=== PATIENT | male | born 1955 | race Caucasian/White ===

== ENCOUNTER → 2020-10-15 14:19 | Outpatient (BNVA) | payer OTHER, SELFPAY | PROVIDERS: Visit Provider Internal Medicine | DX: E05.00 Thyrotoxicosis with diffuse goiter without thyrotoxic crisis or storm (principal); E89.0 Postprocedural hypothyroidism; R00.1 Bradycardia, unspecified | CPT/HCPCS: 99204 ==

== ENCOUNTER 2020-10-15 15:16 | Outpatient (CLI) | payer OTHER, SELFPAY ==
[2020-10-15 16:49] LABS: Thyroid Stimulating Hormone 0.29 uIU/mL (0.27-4.20)
[2020-10-17 12:04] LABS: T3 Total 98 ng/dL (76-181)
[2020-10-21 22:47] LABS: TSH Receptor Binding Antibody <1.00 IU/L (< OR = 2.00)
== END 2020-10-15 15:17 | disposition home or self-care (01) ==
PROVIDERS: Visit Provider Internal Medicine
DX: E05.00 Thyrotoxicosis with diffuse goiter without thyrotoxic crisis or storm (principal)
CPT/HCPCS: 36415; 83516; 84439; 84443; 84480

== ENCOUNTER → 2020-11-11 14:42 | Outpatient (BNVA) | payer OTHER, SELFPAY | PROVIDERS: Visit Provider Internal Medicine | DX: E05.00 Thyrotoxicosis with diffuse goiter without thyrotoxic crisis or storm (principal); E29.1 Testicular hypofunction; E89.0 Postprocedural hypothyroidism; M81.0 Age-related osteoporosis without current pathological fracture; R00.1 Bradycardia, unspecified; Z85.46 Personal history of malignant neoplasm of prostate | CPT/HCPCS: 99215 ==

== ENCOUNTER 2020-11-11 15:09 | Outpatient (CLI) | payer OTHER, SELFPAY ==
[2020-11-11 16:59] LABS: Anion Gap 13.2 (5-19); Blood Urea Nitrogen 22 mg/dL (8-23); Calcium 8.9 mg/dL (8.5-10.5); Carbon Dioxide 23 mmol/L (22-29); Chloride 108 mmol/L (98-107); Free T4 Free Thyroxine 1.65 ng/dL (0.82-1.77); Glomerular Filtration Rate 84.2 mL/min (90-130); Glucose 80 mg/dL (65-115); Osmolality Calculated 292 mOsm/kg (285-295); Potassium 4.2 mmol/L (3.5-5.1); Sodium 140 mmol/L (136-145); Thyroid Stimulating Hormone 0.03 uIU/mL (0.27-4.20)
[2020-11-11 17:01] LABS: Calcium 9.6 mg/dL (8.5-10.5)
== END 2020-11-11 15:10 | disposition home or self-care (01) ==
PROVIDERS: Visit Provider Internal Medicine
DX: M81.0 Age-related osteoporosis without current pathological fracture (principal); E89.0 Postprocedural hypothyroidism
CPT/HCPCS: 36415; 80048; 82310; 83970; 84439; 84443

== ENCOUNTER 2020-12-17 10:50 | Outpatient (CLI) | payer OTHER, SELFPAY ==
[2020-12-17 12:25] LABS: Free T4 Free Thyroxine 1.44 ng/dL (0.82-1.77); Thyroid Stimulating Hormone 0.04 uIU/mL (0.27-4.20)
== END 2020-12-17 10:51 | disposition home or self-care (01) ==
LOC: LAB 10:57
PROVIDERS: PCP Internal Medicine; Visit Provider Internal Medicine
DX: E89.0 Postprocedural hypothyroidism (principal)
CPT/HCPCS: 84439; 84443

== ENCOUNTER → 2020-12-26 11:00 | Day surgery (SDC) | payer OTHER, SELFPAY ==
[2020-12-26 11:16] VITALS: BP 110/62; PULSE 55; RESP 16; TEMP 36.2; O2SAT 99
[2020-12-26] MEDS: denosumab 60 mg SDV SUBCUT (11:37)
== END ==
PROVIDERS: PCP Internal Medicine; Visit Provider Internal Medicine
DX: E89.0 Postprocedural hypothyroidism (principal)
CPT/HCPCS: 96372; J0897

== ENCOUNTER → 2021-01-09 11:43 | Outpatient (BNVA) | payer OTHER, SELFPAY | PROVIDERS: PCP Family Medicine; Visit Provider Urology | DX: Z85.46 Personal history of malignant neoplasm of prostate (principal); R31.29 Other microscopic hematuria; Z96.0 Presence of urogenital implants | CPT/HCPCS: 81003; 87086; 88112 ==

== ENCOUNTER 2021-02-05 09:02 | Outpatient (CLI) | payer OTHER, SELFPAY ==
--- NOTE | 2021-02-05 09:00 | CT_ITS ---
WS: [id number] CT ABDOMEN AND PELVIS WITH AND WITHOUT CONTRAST HISTORY: R31.29 - Other microscopic hematuria TECHNIQUE: Unenhanced 5 mm axial imaging first performed through the abdomen. Post contrast imaging t hrough the abdomen and pelvis. Oral contrast has not been provided. Sagittal and coronal reformats a re submitted. All CT scans at [facility] use at least one of these dose optimization tech niques: automated exposure control; mA and/or kV adjustment per patient size (includes targeted exams where dose is matched to clinical indication); or iterative reconstruction. CONTRAST: Omnipaque 300; 95 mL IV. DLP: 2197.23 mGy.cm COMPARISON: None available. Noncalcified 3 mm nodules heart is normal size. No hiatal hernia. At the RIGHT lung base. Normal size liver with several low-attenuation masses. Majority of these are cysts with the largest measuring up to 2.2 cm. Some of these low-attenuation nodules are too small to characterize. Normal portal vein. Negative gallbladder, spleen and pancreas. Normal adrenal glands. Mild atherosclerosis aorta. RIGHT kidney: 9.7 cm in length. Mild perinephric stranding. No calcifications. Cortical cyst upper po le measures 5 mm at its maximum diameter. No enhancing masses or obstruction. No uroepithelial fillin g defects. LEFT kidney: 9.0 cm in length. Very mild perinephric stranding with no obstruction or calcification. No cystic or solid mass. No uroepithelial filling defects. Normally distended urinary bladder. No bladder wall thickening or mass. Penile prosthesis with reserv oir is noted within the pelvis. No adenopathy or ascites. Visualized GI tract is normal. The appendix is normal. No destructive bone lesions. CT/CT abdomen pelvis wo/w [id number] IMPRESSION: 1. No renal mass, obstruction or calcification. 2. No lesions in the urinary bladder. 3. Hepatic cysts. Additional subcentimeter nodules are too small to characteri ze within the liver.
[2021-02-05 09:55] LABS: Blood Urea Nitrogen 25 mg/dL (8-23); Glomerular Filtration Rate 84.2 mL/min (90-130)
[2021-02-05] MEDS: iohexol 300 mg/mL 100 mL Btl IV (10:12)
== END 2021-02-05 09:03 | disposition home or self-care (01) ==
LOC: RAD 09:04
PROVIDERS: PCP Family Medicine; Visit Provider Urology
DX: R31.29 Other microscopic hematuria (principal); K76.89 Other specified diseases of liver
CPT/HCPCS: 36415; 74178; 81003; 82565; 84520

== ENCOUNTER 2021-02-15 12:54 | Emergency (ER) | payer OTHER, SELFPAY ==
[2021-02-15 12:56] VITALS: BP 115/77; PULSE 97; RESP 18; TEMP 36.6; O2SAT 97; BMI 26.6
--- NOTE | 2021-02-15 13:06 | ED_ITS ---
HPI - Wound/Laceration General: Chief Complaint: Wound/Laceration Stated Complaint: left hand finger injury Time Seen by Provider: 02/15/21 13:05 History of Present Illness: HPI narrative: Patient is a 65-year-old male comes to the ED with laceration to finger. Injury occurred just prior to arrival. Patient says he was dissecting a turtle and accidentally cut his left fifth digit. Laceration is on the dorsal aspect fifth digit. Patient is currently on Brilinta and takes a daily aspirin. Patient is unsure of last tetanus shot and would like an updated dose today. Associated symptoms: Denies chills, fever(s), nausea or vomiting Review of Systems Const: Denies: fever(s), chills or fatigue Eyes: Denies: change in vision or eye discomfort ENMT: Denies: throat pain, odynophagia, nasal discharge or nasal congestion Card: Denies: chest pain, palpitations, edema, swelling of feet/ankles, dyspnea on exertion or orthopnea Resp: Denies: dyspnea, productive cough or non-productive cough GI: Denies: abdominal pain, nausea, vomiting, diarrhea, constipation or hematochezia : Denies: flank pain, difficulty urinating, dysuria or hematuria Musc: Denies: neck pain, back pain or extremity swelling Skin/Breast: Reports: new lesions (laceration to 5th digit of left hand); Denies: rash Neuro: Denies: headache(s), numbness in extremities or weakness in extremities PFS ED PFSH: Medical History Anxiety Bladder incontinence Bradycardia Coronary artery disease Depression Hypogonadism Hypothyroidism Impotence Left rotator cuff tear arthropathy Microhematuria Neuropathy Obstructive sleep apnea Osteoarthritis Osteoporosis Right inguinal hernia Tendinitis Surgical History H/O prostatectomy Family History Mother Brain aneurysm Diabetes CAD (coronary artery disease) Father Hodgkins disease Social History Smoking and tobacco status: current every day smoker Second hand smoke exposure: Yes Alcohol intake: current Alcohol intake frequency: holidays/special occasions only Marital status: Current occupational status: disabled Physical Exam Const: COMMON NORMALS: no acute distress, patient oriented x3, healthy appearing and alert GENERAL APPEARANCE: cooperative and comfortable HENMT: COMMON NORMALS: normocephalic HEAD & SCALP: normocephalic MOUTH: Normal oral and palatal mucosa present THROAT: posterior oropharynx normal and uvula midline Neck/C-Spine: COMMON NORMALS: supple GENERAL: Yes normal visual inspection Resp: COMMON NORMALS: normal respiratory effort, No retractions, No use of accessory muscles and clear to auscultation bilaterally AUSCULTATION: clear to auscultation bilaterally Cardio: COMMON NORMALS: regular rate, regular rhythm, S1 normal heart sound present, S2 normal heart sound present, No gallops present (Cardio), No clicks present (Cardio), No murmurs present (Cardio) and Peripheral pulses 2+ throughout RATE: regular rate RHYTHM: regular rhythm HEART SOUNDS: S1 normal heart sound present and S2 normal heart sound present PERIPHERAL PULSES: Peripheral pulses 2+ throughout GI: COMMON NORMALS: Normal to inspection, nondistended, normoactive bowel sounds present, Soft to palpation, non-tender and no masses PALPATION: Yes Soft to palpation : COMMON NORMALS: Yes no CVA tenderness BLADDER/KIDNEY EXAM: Yes no CVA tenderness Back/Pelvis: COMMON NORMALS: no CVA tenderness Extremity: NARRATIVE EXTREMITY EXAM: Left hand?fifth digit?linear superficial laceration approximately 1.5 cm in length. Patient had finger wrapped in bandage and I removed the bandage and there is no active bleeding at that time. Once patient started moving finger bleeding started again. Patient has full range of motion and fifth digit. Neuro: COMMON NORMALS: patient oriented x3 and moves all extremities SENSORIUM/ORIENTATION: Yes alert Skin: TRAUMA: laceration (1.5 cm laceration on dorsal aspect of fifth digit left hand.) linear, actively bleeding (Minimal) and superficial; not contaminated Procedures Laceration Laceration 1: Site: hand (Dorsal aspect of fifth digit) Side (If applicable): left Size (cm): 1.5 Description: linear Depth: simple, single layer Local Anesthetic: lidocaine 1% Amount of anesthesia used (mL): 10 Pre-repair: irrigated extensively (With normal saline and an iodine wash.) Skin layer closed with: nylon Size (cm): 4-0 Number of sutures: 7 Technique: simple, interrupted Course Vital Signs: Vital signs: Vital Signs Temperature 97.9 F 02/15/21 12:56 Pulse Rate 97 02/15/21 12:56 Respiratory Rate 18 02/15/21 12:56 Blood Pressure 115/77 02/15/21 12:56 Pulse Oximetry 97 02/15/21 12:56 MDM - Wound/Laceration MDM Narrative: Medical decision making narrative: Patient is a 65-year-old male comes to the ED with a laceration to fifth digit. Patient was dissecting internal and accidentally cut his fifth digit. Patient has a linear and superficial 1.5 cm laceration over the dorsal aspect of fifth digit. There is no nail involvement. Patient has full range of motion in finger, so no suspicion of any tendon injury. Left hand x-ray shows no acute findings or foreign body seen. Patient was given updated tetanus and laceration was irrigated extensively with normal saline and iodine wash. Lidocaine 1% was used as a local and 7 sutures were placed to close wound. Patient was discharged home on Augmentin as prophylactic treatment. He was told to follow-up with his PCP in 7 to 10 days to have laceration site reevaluated and the sutures removed. Return to ED precautions given. Patient understood and agree with plan. Imaging Data^: Xray Ortho: Attestation: I personally reviewed and interpreted this imaging study as follows: Radiologist's impression: [address] [id number] ReportSigned Patient: Jt Cintron #: [id number]: 4Acct#:[id number]/Sex: 65 / MADM Date: 02/15/21[facility]ending Dr: Ordering Provider/Ordering MD: Beck Arthur Date of Service: 02/15/21 Procedure(s): XR hand LT min 3V* [id number] Accession Number(s): [id number] Report Number: [id number] PROCEDURE INFORMATION: Exam: XR Left Hand Exam date and time: 02/15/2021 1:07 PM Age: 65 years old Clinical indication: Injury or trauma; Other: Laceration; Work related; Left; Little finger; Additional info: Laceration to 5th digit TECHNIQUE: Imaging protocol: XR Left hand. Views: 3 or more views. COMPARISON: No relevant prior studies available. FINDINGS: Bones/joints: Negative for acute bony abnormalities Soft tissues: Soft tissue edema is seen in the lateral aspect of the 5th digit near the distal interphalangeal articulation. There are no foreign bodies seen in the soft tissues. XR/XR hand LT min 3V* [id number] IMPRESSION: 1. No acute findings. 2. Soft tissue edema 5th digit 3. Negative for soft tissue foreign body Dictated By:Darwin Chau By:Darwin Chau Date/Time:02/15/211407DD/ 06 Discharge Plan Discharge Patient Disposition: Home Clinical Impression: Laceration of finger Qualifiers: Encounter type: initial encounter Finger: little finger Damage to nail status: without damage Foreign body presence: without foreign body Laterality: left Qualified Code(s): S61.217A - Laceration without foreign body of left little finger without damage to nail, initial encounter Condition: Stable Prescriptions: New Augmentin 500-125 mg tablet 1 tab PO BID 7 Days Qty: 14 RF: 0 No Action duloxetine 60 mg capsule,delayed release(DR/EC) 60 mg PO DAILY RF: 0 atorvastatin 40 mg tablet 40 mg PO DAILY RF: 0 gabapentin 400 mg capsule 400 mg PO BID RF: 0 aspirin 81 mg tablet,delayed release (DR/EC) 81 mg PO DAILY RF: 0 Brilinta 90 mg tablet 90 mg PO DAILY RF: 0 topiramate 50 mg tablet 50 mg PO BID RF: 0 cholecalciferol (vitamin D3) 100 mcg (4,000 unit) capsule 100 mcg PO BID RF: 0 trazodone 50 mg tablet 50 mg PO DAILY RF: 0 hydrocodone-acetaminophen 5-325 mg tablet 1 tab PO Q4H PRN (Reason: Pain) RF: 0 levothyroxine 112 mcg tablet 112 mcg PO DAILY 90 Days Qty: 90 RF: 3 Prolia 60 mg/mL syringe 60 mg SUBCUT ONCE Qty: 1 RF: 2 Discharge Orders: Discharge ED (Routine); Ordered 02/15/21 Ordered By: Beck Arthur Referrals: Calli Marcelo MD [Primary Care Provider] - Discharge Diet: Regular Discharge Activity: Limit activity as instructed Patient Instructions: Suture Care (ED), Laceration (ED) Activity Restrictions/Additional Instructions: Take full course of antibiotics as prescribed. Keep laceration site clean and dry for the next 48 hours. Then after that you can clean and re-bandage daily. Watch for signs of infection such as redness, warmth, increased tenderness and puslike drainage. If you see the signs of infection return to the ED, urgent care or PCP for reevaluation. call your PCP to schedule a follow-up appointment for reevaluation and suture removal in about 7- 10 days. Continue taking all home meds. Follow discharge plans as discussed. You can return to the ED if symptoms worsen. Coding Level of Care Code ED Tank Assembler for Larry Herrmann Exam Comprehensive
[2021-02-15] MEDS: tetanus-dipt-pertussis 0.5 mL SDV IM (14:13)
== END 2021-02-15 14:20 | disposition home or self-care (01) ==
PROVIDERS: Emergency Provider Physician Assistant; PCP Family Medicine
DX: S61.217A Laceration without foreign body of left little finger without damage to nail, initial encounter (principal); W26.0XXA Contact with knife, initial encounter; Z79.82 Long term (current) use of aspirin; I25.10 Atherosclerotic heart disease of native coronary artery without angina pectoris; F17.210 Nicotine dependence, cigarettes, uncomplicated; Z23 Encounter for immunization
CPT/HCPCS: 12001; 73130; 90471; 90715; 99283; A6446

== ENCOUNTER 2021-04-28 15:55 | Outpatient (CLI) | payer OTHER, SELFPAY ==
--- NOTE | 2021-04-28 16:12 | MR_ITS ---
WS: [id number] MRI CERVICAL SPINE NONCONTRAST HISTORY: BACK AND NECK PAIN COMPARISON: None available. Technique: Multiplanar, multisequence noncontrast imaging of the cervical spine. Slight straightening and reversal normal cervical lordosis. Mild disc space narrowing and desiccation . C4 anterolisthesis by 2 mm. Signal within the cervical cord is normal. Visualized posterior fossa is unremarkable. Craniocervical junction, C1 and C2 relationship, odontoid process and soft tissues are normal. C2-C3: Small central disc protrusion and mild osteophytic ridging. No significant stenosis. C3-C4: Mild osteophytic ridging with central disc protrusion. There is also moderate ligamentum flavu m disease and facet arthritis. Mild central with moderate bilateral foraminal stenosis. RIGHT foramin al stenosis greater than LEFT. C4-C5: Mild annular disc bulging and osteophytic ridging. Small central disc protrusion and mild face t arthritis. Mild central stenosis. C5-C6: Diffuse asymmetric disc bulging. RIGHT paracentral disc osteophyte complex causing deformity o f the thecal sac. Contact on the RIGHT lateral thecal sac with no displacement. C6-C7: Diffuse annular disc bulging and osteophytic ridging. No stenosis. C7-T1: Mild osteophytic ridging and annular disc bulging with mild foraminal narrowing. T2 bright 5 mm nodule along the RIGHT vocal cord. MR/MR cervical spin wo con* [id number] IMPRESSION: 1. Moderate bilateral foraminal stenosis, RIGHT greater than LEFT at C3-4 with mild central stenosis. 2. Mild central stenosis at C4-5. 3. Moderate-sized disc osteophyte RIGHT paracentral C5-6 contacts the RIGHT la teral thecal sac but does not displace it. 4. 5 mm nodule associated with the RIGHT vocal cord. Recommend direct visualiz ation by ENT.
== END 2021-04-28 15:56 | disposition home or self-care (01) ==
LOC: RADSHAW 15:56
PROVIDERS: PCP Family Medicine; Visit Provider Family Medicine
DX: M54.2 Cervicalgia (principal); M54.9 Dorsalgia, unspecified; M48.02 Spinal stenosis, cervical region; M25.78 Osteophyte, vertebrae
CPT/HCPCS: 72141

== ENCOUNTER 2021-06-05 13:43 | Outpatient (CLI) | payer OTHER, SELFPAY ==
--- NOTE | 2021-06-05 14:00 | MR_ITS ---
WS: [id number] MRI LUMBAR SPINE NONCONTRAST HISTORY: LOW BACK PAIN COMPARISON: None available. TECHNIQUE: Sagittal and axial multisequence imaging is submitted. Straightening of the normal cervical lordosis and slight reversal. Mild increase in thoracic kyphosis . Mild RIGHT curvature thoracic spine. Very slight LEFT curvature the lumbar spine. Posterior alignment is normal. Mild disc desiccation at L4-5 and L5-S1 without significant loss of height. Conus terminates normally at L1-2 disc level. L1-L2: Normal. L2-L3: Mild ligamentum flavum hypertrophy. No significant stenosis. L3-L4: Annular disc bulging and mild ligamentum flavum hypertrophy and facet arthritis. Small amount of fluid in the facet joints. Very mild bilateral foraminal stenosis. L4-L5: Mild annular disc bulging with ligamentum flavum hypertrophy and facet arthritis. There is a v lashae shallow RIGHT paracentral disc protrusion with minimal contact and displacement on the traversing RIGHT L5 nerve root. Additional diffuse disc bulging contacting the traversing LEFT L5 nerve root al so. Mild LEFT foraminal narrowing. No high-grade stenosis. L5-S1: Moderate annular disc bulging with a shallow LEFT paracentral disc protrusion. Protrusion cont acts but does not displace the LEFT S1 nerve root. No significant foraminal stenosis. MR/MR lumbar spine wo con* [id number] IMPRESSION: 1. No high-grade central stenosis. 2. Mild annular disc bulging with ligamentum flavum hypertrophy at L4-5. Very shallow focal RIGHT paracentral disc protrusion contacts the traversing RIGHT L 5 nerve root. Annular disc bulging also contacts the traversing L5 nerve roots bilaterally without displacement. 3. Very shallow LEFT paracentral disc protrusion at L5-S1 contacting but not d isplacing the LEFT S1 nerve root.
--- NOTE | 2021-06-05 14:00 | XR_ITS ---
WS: [id number] LATERAL LUMBAR SPINE: 3 view. Lateral radiographs are performed in upright neutral, flexion and extension to the patient's toleranc e. HISTORY: LOW BACK PAIN COMPARISON: None available. Normal lumbar alignment. No instability with flexion or extension. Mild osteopenia and mild disc spac e narrowing. Facet joint arthropathy is moderate at L4-5 and L5-S1. Scattered atherosclerotic plaque within the aorta. XR/XR lumbar spine f/e only [id number] IMPRESSION: 1. No lumbar spine instability. 2. Moderate facet joint arthritis at L4-5 and L5-S1.
== END 2021-06-05 13:44 | disposition home or self-care (01) ==
PROVIDERS: PCP Family Medicine; Visit Provider Nurse Practitioner
DX: M47.816 Spondylosis without myelopathy or radiculopathy, lumbar region (principal); M47.817 Spondylosis without myelopathy or radiculopathy, lumbosacral region; M51.26 Other intervertebral disc displacement, lumbar region; M51.27 Other intervertebral disc displacement, lumbosacral region
CPT/HCPCS: 72120; 72148

== ENCOUNTER 2021-07-27 12:40 | Outpatient (CLI) | payer OTHER, SELFPAY ==
[2021-07-27 13:56] LABS: Thyroid Stimulating Hormone 9.27 uIU/mL (0.27-4.20)
== END 2021-07-27 12:41 | disposition home or self-care (01) ==
LOC: LAB 12:43
PROVIDERS: PCP Family Medicine; Visit Provider Internal Medicine
DX: E05.00 Thyrotoxicosis with diffuse goiter without thyrotoxic crisis or storm (principal); E29.1 Testicular hypofunction; E89.0 Postprocedural hypothyroidism; M81.0 Age-related osteoporosis without current pathological fracture; Z85.46 Personal history of malignant neoplasm of prostate
CPT/HCPCS: 84439; 84443

== ENCOUNTER → 2021-07-30 14:50 | Outpatient (BNVA) | payer OTHER, SELFPAY | PROVIDERS: PCP Family Medicine; Visit Provider Internal Medicine | DX: E05.00 Thyrotoxicosis with diffuse goiter without thyrotoxic crisis or storm (principal); E89.0 Postprocedural hypothyroidism; M81.0 Age-related osteoporosis without current pathological fracture; R00.1 Bradycardia, unspecified; F17.200 Nicotine dependence, unspecified, uncomplicated | CPT/HCPCS: 99214 ==

== ENCOUNTER 2021-07-30 15:47 | Outpatient (CLI) | payer OTHER, SELFPAY ==
[2021-07-31 14:38] LABS: Thyroglobulin AB <1 IU/mL (< or = 1); Thyroid Peroxidase Antobodies 2 IU/mL (<9)
[2021-08-05 16:08] LABS: TSH Receptor Binding Antibody 1.21 IU/L (< OR = 2.00)
== END 2021-07-30 15:48 | disposition home or self-care (01) ==
LOC: LAB 15:50
PROVIDERS: PCP Family Medicine; Visit Provider Internal Medicine
DX: E05.00 Thyrotoxicosis with diffuse goiter without thyrotoxic crisis or storm (principal); E89.0 Postprocedural hypothyroidism
CPT/HCPCS: 36415; 83516; 86376; 86800

== ENCOUNTER → 2021-08-11 07:48 | Outpatient (BNVA) | payer OTHER, SELFPAY | PROVIDERS: PCP Family Medicine; Visit Provider Specialist | DX: G62.89 Other specified polyneuropathies (principal); M54.2 Cervicalgia; F17.210 Nicotine dependence, cigarettes, uncomplicated | CPT/HCPCS: 95886; 95910; 99202 ==

== ENCOUNTER 2021-09-23 14:11 | Outpatient (CLI) | payer OTHER, SELFPAY ==
--- NOTE | 2021-09-23 14:15 | XR_ITS ---
WS: [id number] DEXA (DUAL ENERGY X-RAY ABSORPTIOMETRY) Bone mineral density was performed using a QuantaSol machine. HISTORY: osteoporosis COMPARISON: None available. Lumbar spine BMD (L1-L4): 1.093 g/cm2 T score: -1.1 Z score: -0.9 Total hip BMD: Left: 0.826 g/cm2. T score: -1.9 Z score: -1.5 Right: 0.858 g/cm2. T score: -1.7 Z score: -1.2 10 year probability of a major osteoporotic fracture is 17%. XR/XR DEXA axial skeleton* [id number] IMPRESSION: OSTEOPENIA based upon the WHO classification for females.
== END 2021-09-23 14:12 | disposition home or self-care (01) ==
PROVIDERS: PCP Family Medicine; Visit Provider Internal Medicine
DX: M81.0 Age-related osteoporosis without current pathological fracture (principal); M85.80 Other specified disorders of bone density and structure, unspecified site
CPT/HCPCS: 77080

== ENCOUNTER → 2021-09-24 14:58 | Outpatient (BNVA) | payer OTHER, SELFPAY | PROVIDERS: PCP Family Medicine; Visit Provider Internal Medicine | DX: E05.00 Thyrotoxicosis with diffuse goiter without thyrotoxic crisis or storm (principal); E89.0 Postprocedural hypothyroidism; R00.1 Bradycardia, unspecified; M81.0 Age-related osteoporosis without current pathological fracture; F17.200 Nicotine dependence, unspecified, uncomplicated | CPT/HCPCS: 99214 ==

== ENCOUNTER 2021-10-08 11:43 | Outpatient (CLI) | payer OTHER, SELFPAY ==
[2021-10-08 13:03] LABS: Free T4 Free Thyroxine 1.33 ng/dL (0.82-1.77)
== END 2021-10-08 11:44 | disposition home or self-care (01) ==
PROVIDERS: PCP Family Medicine; Visit Provider Internal Medicine
DX: E05.00 Thyrotoxicosis with diffuse goiter without thyrotoxic crisis or storm (principal); E89.0 Postprocedural hypothyroidism
CPT/HCPCS: 84439

== ENCOUNTER 2021-12-29 09:44 | Outpatient (CLI) | payer OTHER, SELFPAY ==
[2021-12-29 11:33] LABS: Thyroid Stimulating Hormone 2.13 uIU/mL (0.27-4.20)
[2021-12-29 12:38] LABS: Free T4 Free Thyroxine 1.41 ng/dL (0.82-1.77)
== END 2021-12-29 09:45 | disposition home or self-care (01) ==
LOC: LAB 09:47
PROVIDERS: PCP Family Medicine; Visit Provider Internal Medicine
DX: E05.00 Thyrotoxicosis with diffuse goiter without thyrotoxic crisis or storm (principal); E89.0 Postprocedural hypothyroidism; M81.0 Age-related osteoporosis without current pathological fracture; R00.1 Bradycardia, unspecified; F17.210 Nicotine dependence, cigarettes, uncomplicated
CPT/HCPCS: 82310; 84439; 84443; 96372; 99214

== ENCOUNTER → 2022-01-14 11:34 | Day surgery (SDC) | payer OTHER, SELFPAY ==
[2022-01-14 11:40] VITALS: BP 122/79; PULSE 63; RESP 18; TEMP 37.1; O2SAT 98
[2022-01-14] MEDS: denosumab 60 mg SDV SUBCUT (11:44)
== END ==
PROVIDERS: PCP Family Medicine; Visit Provider Internal Medicine
DX: Z85.46 Personal history of malignant neoplasm of prostate (principal); R31.29 Other microscopic hematuria; R32 Unspecified urinary incontinence; M81.0 Age-related osteoporosis without current pathological fracture
CPT/HCPCS: 81003; 84153; 96372; 99213; J0897

== ENCOUNTER → 2022-01-18 14:58 | Outpatient (BNVA) | payer OTHER, SELFPAY | PROVIDERS: PCP Family Medicine; Visit Provider Specialist | DX: G62.9 Polyneuropathy, unspecified (principal); F17.210 Nicotine dependence, cigarettes, uncomplicated; E89.0 Postprocedural hypothyroidism | CPT/HCPCS: 36415; 82607; 83036; 83520; 84155; 84165; 84439; 84443; 85651; 86140; 99214 ==

== ENCOUNTER → 2022-02-03 10:04 | Outpatient (BNVA) | payer OTHER, SELFPAY | PROVIDERS: PCP Family Medicine; Visit Provider Specialist | DX: R20.0 Anesthesia of skin (principal); R20.2 Paresthesia of skin | CPT/HCPCS: 86334 ==

== ENCOUNTER 2022-05-03 14:08 | Outpatient (CLI) | payer OTHER, SELFPAY ==
[2022-05-03 15:02] LABS: Free T4 Free Thyroxine 1.04 ng/dL (0.82-1.77); Thyroid Stimulating Hormone 2.88 uIU/mL (0.27-4.20)
== END 2022-05-03 14:09 | disposition home or self-care (01) ==
LOC: LAB 14:10
PROVIDERS: PCP Family Medicine; Visit Provider Internal Medicine
DX: E05.00 Thyrotoxicosis with diffuse goiter without thyrotoxic crisis or storm (principal); E29.1 Testicular hypofunction; E89.0 Postprocedural hypothyroidism
CPT/HCPCS: 36415; 84439; 84443; G0463

== ENCOUNTER 2022-05-07 08:51 | Oncology outpatient (recurring) (ONCR) | payer OTHER, SELFPAY ==
[2022-04-12 12:14] LABS: Basophils # 0.1 10^3/uL (0.0-0.1); Basophils % 1.2 %; Eosinophils # 0.7 10^3/uL (0.0-0.8); Eosinophils % 6.6 %; Hematocrit 46.3 % (42.0-52.0); Lymphocytes # 2.4 10^3/uL (0.8-4.8); Mean Corpuscular HGB Conc 32.4 g/dL (30.0-36.0); Mean Corpuscular Hemoglobin 31.1 pg (28.0-34.0); Mean Corpuscular Volume 96.1 fl (80-94); Mean Platelet Volume 11.3 fL (7.4-10.4); Monocytes # 0.8 10^3/uL (0.2-0.9); Monocytes % 7.2 %; Neutrophils # 6.64 10^3/uL (1.8-7.7); Neutrophils % 62.2 %; Nucleated Red Blood Cells % 0 %; Platelet Count 214 10^3/cmm (130-400); Red Blood Count 4.82 10^6/uL (4.1-5.3); Red Cell Distribution Width 14.2 % (12.1-15.1); White Blood Count 10.7 10^3/uL (4.0-10.0)
[2022-04-12 12:17] LABS: Erythrocyte Sedimentation Rate 8 mm/hr (0-10)
[2022-04-12 12:42] LABS: Alanine Aminotransferase 34 U/L (0-41); Albumin Level 3.7 g/dL (3.5-5.2); Alkaline Phosphatase 76 IU/L (40-130); Blood Urea Nitrogen 36 mg/dL (8-23); Carbon Dioxide 19 mmol/L (22-29); Chloride 109 mmol/L (98-107); Creatinine Clr Calc Pharmacy 77.8716; Globulin 2.9 g/dL (1.3-4.6); Glomerular Filtration Rate 74.3 mL/min (90-130); Glucose 84 mg/dL (65-115); Osmolality Calculated 296 mOsm/kg (285-295); Sodium 139 mmol/L (136-145); Total Bilirubin 0.2 mg/dL (0.15-1.2); Total Protein 6.6 g/dL (6.6-8.7)
[2022-04-12 12:43] LABS: Anion Gap 15.3 (5-19); Aspartate Amino Transferase 32 U/L (0-40); Potassium 4.3 mmol/L (3.5-5.1)
[2022-04-13 16:46] LABS: Urine Creatinine 103 mg/dL (39-259)
[2022-04-13 16:51] LABS: Total Volume Urine 1500 ml
[2022-04-13 19:17] LABS: Total Volume, Urine 1500 mL
[2022-04-13 19:46] LABS: Urine Total Protein 6.8 mg/dL (0-150)
[2022-04-14 11:19] LABS: CREATININE, 24 HOUR URINE 1.47 g/24 h (0.50-2.15); PROTEIN, TOTAL, 24 HR UR 135 mg/24 h (<150); Protein/Creatinine Ratio 0.092 (< OR = 0.114); Protein/Creatinine Ratio 92 mg/g creat (< OR = 114)
[2022-04-14 11:38] LABS: KAPPA LIGHT CHAIN, FREE, SERUM 29.7 mg/L (3.3-19.4); LAMBDA LIGHT CHAIN, FREE, SERU 17.5 mg/L (5.7-26.3)
[2022-04-15 03:12] LABS: PROTEIN, TOTAL 6.6 g/dL (6.1-8.1)
[2022-04-15 09:13] LABS: ALBUMIN 0 %; ALPHA-1-GLOBULINS 0 %; ALPHA-2-GLOBULINS 0 %; BETA GLOBULINS 0 %; GAMMA GLOBULINS 0 %
[2022-04-15 09:18] LABS: ABNORMAL PROTEIN BAND 1 0.2 g/dL (NONE DETECTED); ALBUMIN 3.8 g/dL (3.8-4.8); ALPHA 1 GLOBULIN 0.4 g/dL (0.2-0.3); ALPHA 2 GLOBULIN 0.8 g/dL (0.5-0.9); BETA 1 GLOBULIN 0.4 g/dL (0.4-0.6); BETA 2 GLOBULIN 0.3 g/dL (0.2-0.5)
--- NOTE | 2022-05-04 13:15 | XR_ITS ---
WS: [id number] Bone survey, multiple imaging, 05/04/2022 Clinical Data: Monoclonal gammopathy Comparison: None. Findings: Lateral cervical spine: No evidence of multiple myeloma is seen. There is osteoarthritis and narrowin g at C6-C7. Lateral cervical spine: Negative for metastatic or multiple myeloma lesions. PA and lateral chest: Negative for acute cardiopulmonary disease. AP views of the arms and humerus: Negative for bony abnormalities. AP and lateral thoracic spine: Negative for metastatic or multiple myeloma lesions. AP and lateral lumbar spine: Negative for metastatic or multiple myeloma lesions. AP pelvis: Negative for bony abnormalities. There are penile implants. AP right thigh and femur: Negative for bony abnormalities. AP left thigh and femur: Negative for bony abnormalities. AP left leg: Negative for bony abnormalities. AP right leg: Negative for bony abnormalities. XR/XR bone survey* [id number] Impression: Negative bone survey with no evidence of lesions of multiple myeloma.
== END 2022-05-12 23:59 | disposition home or self-care (01) ==
PROVIDERS: PCP Family Medicine; Visit Provider Internal Medicine Medical Oncology
DX: D47.2 Monoclonal gammopathy (principal); F17.210 Nicotine dependence, cigarettes, uncomplicated; G62.9 Polyneuropathy, unspecified
CPT/HCPCS: 36415; 77075; 80053; 82570; 83883; 84155; 84156; 84165; 84166; 85025; 85651; 86334; 99214; G0463

== ENCOUNTER → 2022-05-19 12:48 | Outpatient (BNVA) | payer OTHER, SELFPAY | PROVIDERS: PCP Family Medicine; Visit Provider Specialist | DX: G62.89 Other specified polyneuropathies (principal) | CPT/HCPCS: 99215 ==

== ENCOUNTER → 2022-06-07 14:53 | Outpatient (BNVA) | payer OTHER, SELFPAY | PROVIDERS: PCP Family Medicine; Referring Provider Family Medicine; Visit Provider Podiatrist Foot & Ankle Surgery | DX: I73.9 Peripheral vascular disease, unspecified (principal); L60.3 Nail dystrophy; S92.355A Nondisplaced fracture of fifth metatarsal bone, left foot, initial encounter for closed fracture; X58.XXXA Exposure to other specified factors, initial encounter | CPT/HCPCS: 73630; 99203; 99204 ==

== ENCOUNTER → 2022-06-25 10:44 | Day surgery (SDC) | payer OTHER, SELFPAY ==
[2022-06-25 11:06] VITALS: BP 153/79; PULSE 49; RESP 18; TEMP 37.1; O2SAT 100
[2022-06-25 11:23] LABS: Calcium 9.6 mg/dL (8.5-10.5)
[2022-06-25] MEDS: denosumab 60 mg SDV SUBCUT (11:25)
== END ==
PROVIDERS: PCP Family Medicine; Visit Provider Internal Medicine
DX: G62.9 Polyneuropathy, unspecified (principal); G61.81 Chronic inflammatory demyelinating polyneuritis; R29.90 Unspecified symptoms and signs involving the nervous system
CPT/HCPCS: 36415; 82310; 96372; J0897

== ENCOUNTER → 2022-06-28 11:32 | Outpatient (BNVA) | payer OTHER, SELFPAY | PROVIDERS: PCP Family Medicine; Visit Provider Specialist | DX: G61.81 Chronic inflammatory demyelinating polyneuritis (principal); G62.9 Polyneuropathy, unspecified; D47.2 Monoclonal gammopathy | CPT/HCPCS: 62270; 80503; 82945; 84157; 86592; 87070; 87075; 87205; 89050; 99214 ==

== ENCOUNTER 2022-07-02 13:17 | Emergency (ER) | payer OTHER, SELFPAY ==
[2022-07-02 13:24] VITALS: BP 123/81; PULSE 53; RESP 15; TEMP 36.4; O2SAT 100; BMI 31.1
--- NOTE | 2022-07-02 13:37 | W.ED.HA ---
HPI - Headache General: Chief Complaint: Headache Stated Complaint: Severe headache post spinal tap Time Seen by Provider: 07/02/22 13:36 Source: patient Mode of arrival: ambulatory History of Present Illness: 66-year-old male presents emergency room he had an LP done 4 days ago he has severe headache. He tried contacting Dr. Ohara's office was unable to get a hold of them. He is not not really taking any for he notes that when he lays down flat his headache symptoms resolved but whenever he exerts himself or sits up at all he begins getting a headache again. He has not had any fever sweats or chills. He has tried using hydrocodone he previously been prescribed with no relief of symptoms MD elicited complaint: headache Pertinent past history: other (Post dural puncture) Onset (ago): day(s) Onset description: gradually Severity: moderate Quality & Timing: throbbing Exacerbating factors: sitting/standing Relieving factors: rest (Lying down) Associated symptoms: Deny chest pain, confusion, cough, diaphoresis, eye pain, eye redness, fever(s), lightheadedness, loss of vision, malaise, nausea, neck stiffness, numbness, paresthesias, photophobia, pre-syncope, rash, seizures, short of breath, sound sensitivity, syncope, vomiting or weakness Review of Systems Const: Denies: fever(s), malaise or diaphoresis Card: Denies: chest pain, lightheadedness, syncope or pre-syncope GI: Denies: nausea or vomiting Skin/Breast: Denies: rash Neuro: Denies: confusion PFSH ED PFSH: Medical History Anxiety Bladder incontinence Bradycardia Coronary artery disease Degenerative joint disease of spine Depression History of Graves' disease History of prostate cancer Hypogonadism Hypothyroidism following radioiodine therapy Impotence Microhematuria Obstructive sleep apnea Osteoarthritis Osteoporosis Peripheral neuropathy Surgical History History of coronary artery stent placement (2019) History of implantation of artificial sphincter (2015) History of penile implant History of radical prostatectomy (2014) History of right inguinal hernia repair S/P left rotator cuff repair Family History Mother Brain aneurysm Diabetes CAD (coronary artery disease) Stroke Father Hodgkins disease Grandmother Stroke Other Cancer Chronic kidney disease (CKD) Hyperlipidemia Hypertension Denies family history of Clotting disorder Dementia Psychiatric illness Suicide Anesthesia complication Bleeding disorder Lung disease Social History Smoking and tobacco status: current every day smoker cigarettes Packs smoked per day: 1 Years cigarettes smoked: 40 Second hand smoke exposure: Yes Alcohol intake: current Alcohol intake frequency: holidays/special occasions only Marital status: Current occupational status: disabled Physical Exam Const: COMMON NORMALS: no acute distress GENERAL APPEARANCE: cooperative and comfortable ORIENTATION/CONSCIOUSNESS: Yes awake, Yes oriented to person, Yes oriented to place and Yes oriented to time HENMT: COMMON NORMALS: normocephalic, atraumatic and hearing grossly normal bilaterally HEAD & SCALP: normocephalic and atraumatic Eye: DIRECT OPHTHALMOSCOPY: No photophobia Neuro: SENSORIUM/ORIENTATION: Yes oriented to person, Yes oriented to place and Yes oriented to time Course Vital Signs: Vital signs: Vital Signs Temperature 97.5 F L 07/02/22 13:58 Pulse Rate 53 L 07/02/22 13:58 Respiratory Rate 15 07/02/22 13:58 Blood Pressure 120/77 07/02/22 13:58 Pulse Oximetry 100 07/02/22 13:24 Oxygen Delivery Me thod 07/02/22 13:24 MDM - Headache Medical Decision Making Presentation typical for postdural puncture headache. Unfortunately do not have anybody available for a blood patch. Recommended patient remain lying down is much as possible kidney increased caffeine intake 300 mg every 6 hours can use analgesics such as ibuprofen or acetaminophen. Patient states he cannot take NSAIDs he declined medication here that was offered. Encouraged him to follow-up with Dr. Ohara as soon as he is able. Medical Records I reviewed the patient's medical records. Lab Data I reviewed the patient's lab results. Discharge Plan Discharge Patient Disposition: Home Clinical Impression: Post-dural puncture headache Condition: Stable Prescriptions: No Action aspirin 81 mg tablet,delayed release (DR/EC) 81 mg PO DAILY Brilinta 90 mg tablet 90 mg PO DAILY cholecalciferol (vitamin D3) 100 mcg (4,000 unit) capsule 100 mcg PO BID atorvastatin 40 mg tablet 80 mg PO DAILY duloxetine 60 mg capsule,delayed release(DR/EC) 60 mg PO BID topiramate 50 mg tablet 25 mg PO BID levothyroxine 112 mcg tablet 112 mcg PO DAILY Rx Instructions: take one tablet daily bupropion HCl [Wellbutrin XL] 300 mg tablet extended release 24 hr 300 mg PO QAM Prolia 60 mg/mL syringe 60 mg SUBCUT .Every 6 months Qty: 1 3RF gabapentin 400 mg capsule 400 mg PO QID Rx Instructions: Take 1 in AM, 1 in afternoon & 1 in pm omeprazole 20 mg capsule,delayed release(DR/EC) 20 mg PO DAILY Discharge Orders: Discharge ED (Routine); Ordered 07/02/22 Ordered By: Lupillo Villasenor Referrals: Calli Marcelo MD [Primary Care Provider] - Patient Instructions: Opioid Safety, Pain Management Activity Restrictions/Additional Instructions: Recommend the use of [id number] Tylenol or NSAIDs as indicated for assistance with headache. In addition to that 300 mg of caffeine by mouth every 6 hours. Potential sources of caffeine would include strongly brewed coffee, high caffeine energy drinks or caffeine tablets. Remaining lying flat as much as you are able will also significantly reduce headache symptoms. Coding Level of Care Code ED Aircraft Electrician for Larry Herrmann
[2022-07-02 13:50] VITALS: BP 120/77
[2022-07-02 13:58] VITALS: BP 120/77; PULSE 53; RESP 15; TEMP 36.4
== END 2022-07-02 13:59 | disposition home or self-care (01) ==
PROVIDERS: Emergency Provider Family Medicine; PCP Family Medicine
DX: G97.1 Other reaction to spinal and lumbar puncture (principal); F17.210 Nicotine dependence, cigarettes, uncomplicated; Z79.82 Long term (current) use of aspirin
CPT/HCPCS: 99282

== ENCOUNTER → 2022-07-05 12:07 | Day surgery (SDC) | payer OTHER, SELFPAY ==
[2022-07-05 12:31] VITALS: BP 109/79; PULSE 50; RESP 18; TEMP 36.8; O2SAT 100
--- NOTE | 2022-07-05 12:52 | P.ANESASSM_ITS ---
Pre-Anesthetic Assessment Height/Weight: Height 1.73 m Weight 92.986 kg Temp Pulse Resp BP Pulse Ox O2 Del Method 98.2 F 50 L 18 109/79 100 07/05/22 12:31 07/05/22 12:31 07/05/22 12:31 07/05/22 12:31 07/05/22 12:31 07/05/22 12:31 Epidural blood patch Familial anesthetic complications: none Was Beta Violeta taken within 24 hours: N/A Was Clonidine taken within 24 hours: N/A Social No alcohol and No tobacco Exam alert, oriented x 3, clear to auscultation bilaterally and regular rate & rhythm Patient with diagnostic lumbar puncture 06/28, ED 07/02 with PDPH, neuro clinic today for f/u of PDPH requested anesthesia for blood patch Airway Submandibular: within normal limits Cervical ROM: within normal limits Mallampati: Class II CV/HEM Coronary Artery Disease and Hypertension GI Gastroesophageal Reflux Disease Metabolic Hyperlipidemia and Thyroid Disease Neuropsych Anxiety, Headache and Neuropathy CIDP, peripheral neuropathy, PTSD, chronic pain Anesthetic Plan ASA status: 3 Other: Plan epidural blood patch for PDPH Medications/Allergies Home Medications Medication Instructions Recorded Confirmed Last Taken Type aspirin 81 mg tablet,delayed 81 mg PO DAILY 10/15/20 06/28/22 01/14/22 History release cholecalciferol (vitamin D3) 100 100 mcg PO BID 10/15/20 06/28/22 01/14/22 History mcg (4,000 unit) capsule ticagrelor 90 mg tablet (Brilinta) 90 mg PO DAILY 10/15/20 06/28/22 01/14/22 History atorvastatin 40 mg tablet 80 mg PO DAILY 08/11/21 06/28/22 01/14/22 History duloxetine 60 mg capsule,delayed 60 mg PO BID 08/11/21 06/28/22 01/14/22 History release denosumab 60 mg/mL subcutaneous 60 mg SUBCUT .Every 6 months #1 mL 12/30/21 06/28/22 01/14/22 Rx syringe (Prolia) levothyroxine 112 mcg tablet 112 mcg PO DAILY 01/14/22 06/28/22 01/14/22 History bupropion HCl 300 mg 24 hr tablet, 300 mg PO QAM 04/12/22 06/28/22 Unknown History extended release (Wellbutrin XL) topiramate 50 mg tablet 25 mg PO BID 04/12/22 06/28/22 Unknown History gabapentin 400 mg capsule 400 mg PO QID 05/19/22 06/28/22 Unknown History omeprazole 20 mg capsule,delayed 20 mg PO DAILY 06/07/22 06/28/22 Unknown History release Allergies Allergy/AdvReac Type Severity Reaction Status Date / Time prochlorperazine Allergy Severe stop Verified 06/28/22 11:38 [From Compazine] breathing tramadol AdvReac INTERACTION Verified 06/28/22 11:38 WITH HIS CURRENT MEDICATION [facility] Anesthesia Medical History Anxiety Bladder incontinence Bradycardia Coronary artery disease Degenerative joint disease of spine Depression History of Graves' disease History of prostate cancer Hypogonadism Hypothyroidism following radioiodine therapy Impotence Microhematuria Obstructive sleep apnea Osteoarthritis Osteoporosis Peripheral neuropathy Surgical History History of coronary artery stent placement (2019) History of implantation of artificial sphincter (2015) History of penile implant History of radical prostatectomy (2014) History of right inguinal hernia repair S/P left rotator cuff repair Family History Mother Brain aneurysm Diabetes CAD (coronary artery disease) Stroke Father Hodgkins disease Grandmother Stroke Other Cancer Chronic kidney disease (CKD) Hyperlipidemia Hypertension Denies family history of Clotting disorder Dementia Psychiatric illness Suicide Anesthesia complication Bleeding disorder Lung disease Social History Smoking and tobacco status: current every day smoker cigarettes Packs smoked per day: 1 Years cigarettes smoked: 40 Second hand smoke exposure: Yes Alcohol intake: current Alcohol intake frequency: holidays/special occasions only Marital status: Current occupational status: disabled Data Anesthesia Cardiac Studies: No Data to Display
[2022-07-05] MEDS: sodium chloride 0.9% 1,000 ML 30 ML IV (13:06)
[2022-07-05 13:45] VITALS: BP 132/84; PULSE 47; RESP 18; TEMP 36.4; O2SAT 100
[2022-07-05 13:56] VITALS: BP 131/76; PULSE 47; RESP 18; TEMP 36.6; O2SAT 100
[2022-07-05 13:59] VITALS: BP 131/76; PULSE 47; RESP 18; TEMP 36.6; O2SAT 100
--- NOTE | 2022-07-05 14:23 | ANES.PROC ---
Anesthesia Procedures Procedure/Date: 07/05/22 Epidrual blood patch Procedure Narrative: PIV started in left arm and patient hydrated with 1L NS. Patient placed in sitting position (assisted by Wes), after entering the epidural space at L4-5, blood was obtained in sterile fashion from right arm and injected into the epidural space slowly. After approximately 10mls patient had relief of H/A symptoms. A total of 15mls of blood was injected into the epidural space. The patient tolerated the procedure well. Epidural: Time Out Performed: Yes Consents Signed: Procedure Consent Consent: from patient, risks and benefits reviewed and patient agrees to proceed Lumbar Level: L4-L5 Epidural position: sitting Epidural procedure: sterile prep of area, 1% lidocaine to numb the area, 18 g needle and neg for paresthesia
--- NOTE | 2022-07-05 14:30 | ANE.PACU2 ---
Inpatient post-anesthesia follow up: Airway intact: Yes Vital signs: Temperature 97.9 F Pulse Rate 47 Respiratory Rate 18 Blood Pressure 131/76 Pulse Oximetry 100 Oxygen Delivery Me thod Room Air Oxygen Flow Rate Fraction of Inspir ed Oxygen Hydration adequate: Yes Nausea and vomiting: No Pain level: 1 Mental status: Baseline
== END ==
PROVIDERS: PCP Family Medicine; Visit Provider Anesthesiology
DX: G97.1 Other reaction to spinal and lumbar puncture (principal)
CPT/HCPCS: J7030

== ENCOUNTER 2022-07-25 12:44 | Emergency (ER) | payer OTHER, SELFPAY ==
[2022-07-25 12:53] VITALS: BP 122/83; PULSE 57; RESP 18; TEMP 36.6; O2SAT 97
--- NOTE | 2022-07-25 13:01 | XRR_ITS ---
PROCEDURE INFORMATION: Exam: XR Left Finger(s) Exam date and time: 07/25/2022 2:10 PM Age: 66 years old Clinical indication: Injury or trauma; Other: Dogbite; Finger; Thumb; Left; Additional info: L thumb TECHNIQUE: Imaging protocol: Radiologic exam of the Left fingers. Views: Minimum 2 views. COMPARISON: No relevant prior studies available. FINDINGS: Bones/joints: Normal. Soft tissues: Normal. XR/XR finger LT min 2V [id number] IMPRESSION: No acute findings.
--- NOTE | 2022-07-25 13:02 | ED_ITS ---
HPI - Animal Bite General: Chief Complaint: Animal Bite Stated Complaint: Bit by a dog Time Seen by Provider: 07/25/22 12:50 Source: patient Mode of arrival: ambulatory History of Present Illness: 66-year-old male presents emergency room with a dog bite to his left thumb. He was trying to help a stray dog. Found nares home he put a collar on it and was trying to lesions and the dog started to bite him that his left thumb is wrapped when he first arrived. He is unsure of his last tetanus he does have the dog still in his possession evidently. Patient is not diabetic there is a history of coronary artery disease and several different chronic autoimmune diseases. complaint: animal bite Onset (ago): minute(s) Description of animal: wild animal and immunizations unknown Mechanism: bite Location - Extremities: Left: hand (Thumb) Pain description: sharp Context: provoked Associated symptoms: Reports bleeding; Deny chills, cough, diaphoresis, erythema, fever(s), headache(s), numbness, rash, short of breath, syncope, weakness or wound drainage Treatments prior to arrival: wound dressing(s) Related Data: Patient tetanus UTD: No Review of Systems Const: Denies: fever(s), chills or diaphoresis ENMT: Denies: throat pain, ear or mastoid pain, nasal discharge or nasal congestion Card: Denies: syncope Resp: Denies: dyspnea, productive cough or non-productive cough GI: Denies: abdominal pain, nausea, vomiting, hematemesis, coffee ground emesis, diarrhea, constipation, bloating, hematochezia or melena : Denies: flank pain, dysuria, urinary frequency or urinary urgency Skin/Breast: Denies: rash or pruritus Neuro: Denies: headache(s) PFS ED PFSH: Medical History Anxiety Bladder incontinence Bradycardia Coronary artery disease Degenerative joint disease of spine Depression History of Graves' disease History of prostate cancer Hypogonadism Hypothyroidism following radioiodine therapy Impotence Microhematuria Obstructive sleep apnea Osteoarthritis Osteoporosis Peripheral neuropathy Surgical History History of coronary artery stent placement (2019) History of implantation of artificial sphincter (2015) History of penile implant History of radical prostatectomy (2015) History of right inguinal hernia repair S/P left rotator cuff repair Family History Mother Brain aneurysm Diabetes CAD (coronary artery disease) Stroke Father Hodgkins disease Grandmother Stroke Other Cancer Chronic kidney disease (CKD) Hyperlipidemia Hypertension Denies family history of Clotting disorder Dementia Psychiatric illness Suicide Anesthesia complication Bleeding disorder Lung disease Social History Smoking and tobacco status: current every day smoker cigarettes Packs smoked per day: 1 Years cigarettes smoked: 40 Second hand smoke exposure: Yes Alcohol intake: current Alcohol intake frequency: holidays/special occasions only Marital status: Current occupational status: disabled Physical Exam Const: COMMON NORMALS: no acute distress GENERAL APPEARANCE: cooperative and comfortable ORIENTATION/CONSCIOUSNESS: Yes awake, Yes oriented to person, Yes oriented to place and Yes oriented to time HENMT: COMMON NORMALS: normocephalic, atraumatic and hearing grossly normal bilaterally HEAD & SCALP: normocephalic and atraumatic Resp: COMMON NORMALS: normal respiratory effort, No retractions, No use of accessory muscles and clear to auscultation bilaterally AUSCULTATION: clear to auscultation bilaterally Cardio: COMMON NORMALS: regular rate, regular rhythm and No murmurs present (Cardio) RATE: regular rate RHYTHM: regular rhythm GI: COMMON NORMALS: Soft to palpation and No hepatosplenomegaly present AUSCULTATION: Yes normoactive bowel sounds PALPATION: Yes Soft to palpation, No Tenderness to palpation present (GI), No Guarding due to palpation present (GI) and Yes No hepatosplenomegaly present Extremity: OTHER: Jagged laceration of the pad of the left thumb some devascularization of the very tip of the thumb. Blanching noted at the tip no capillary refill Neuro: SENSORIUM/ORIENTATION: Yes oriented to person, Yes oriented to place and Yes oriented to time Skin: COMMON NORMALS: no rashes or lesions noted GENERAL SKIN EXAM: no rashes or lesions noted and no erythema Procedures Laceration Laceration 1: Site: upper extremity and hand Side (If applicable): left (thumb) Size (cm): 2 Description: linear Depth: simple, single layer Skin layer closed with: nylon Size (cm): 4-0 Number of sutures: 2 Technique: running Nerve Block Nerve Block 1: Time out performed: Yes Local Anesthetic: lidocaine 1% Amount of anesthesia used (mL): 4 Side: left (thumb) Nerve Blocks: digital Procedure Successful: Yes Patient Tolerated Procedure: well Complications: none Course Vital Signs: Vital signs: Vital Signs Temperature 97.9 F 07/25/22 15:59 Pulse Rate 65 07/25/22 15:59 Respiratory Rate 18 07/25/22 15:59 Blood Pressure 145/70 07/25/22 15:59 Pulse Oximetry 98 07/25/22 14:57 Oxygen Delivery Me thod 07/25/22 12:53 MDM - Animal Bite Medical Decision Making Tetanus updated wound closed wound care instructions given. Sutures out in 7 to 10 days. Rabies prophylaxis initiated follow-up with usual course of rabies vaccine. Medical Records I reviewed the patient's medical records. Lab Data I reviewed the patient's lab results. Radiology Impressions Finger X-Ray 07/25/22 13:01 IMPRESSION: No acute findings. Discharge Plan Discharge Patient Disposition: Home Clinical Impression: Dog bite, Need for post exposure prophylaxis for rabies, Finger laceration Condition: Stable Prescriptions: New amoxicillin-pot clavulanate 875-125 mg tablet 1 tab PO BID Qty: 14 0RF mupirocin 2 % ointment 1 applic topical BID Qty: 15 0RF No Action aspirin 81 mg tablet,delayed release (DR/EC) 81 mg PO DAILY Brilinta 90 mg tablet 90 mg PO DAILY cholecalciferol (vitamin D3) 100 mcg (4,000 unit) capsule 100 mcg PO BID atorvastatin 40 mg tablet 80 mg PO DAILY duloxetine 60 mg capsule,delayed release(DR/EC) 60 mg PO BID topiramate 50 mg tablet 25 mg PO BID levothyroxine 112 mcg tablet 112 mcg PO DAILY Rx Instructions: take one tablet daily bupropion HCl [Wellbutrin XL] 300 mg tablet extended release 24 hr 300 mg PO QAM Prolia 60 mg/mL syringe 60 mg SUBCUT .Every 6 months Qty: 1 3RF gabapentin 400 mg capsule 400 mg PO QID Rx Instructions: Take 1 in AM, 1 in afternoon & 1 in pm omeprazole 20 mg capsule,delayed release(DR/EC) 20 mg PO DAILY Discharge Orders: Discharge ED (Routine); Ordered 07/25/22 Ordered By: Lupillo Villasenor Referrals: Calli Marcelo MD [Primary Care Provider] - Discharge Diet: Usual diet Discharge Activity: Resume usual activity Patient Instructions: Laceration (ED), Rabies (ED), Opioid Safety, Pain Management Activity Restrictions/Additional Instructions: Complete rabies series as per instructions. Sutures to be removed in 7 to 10 days. Coding Level of Care Code ED Agricultural Research Director for Chg Fwd Exam Detailed
[2022-07-25] MEDS: rabies vaccine 2.5 unit SDV IM (13:15)
--- NOTE | 2022-07-25 13:30 | PC.NURSE ---
This medical underwriter notified [facility] Department of pt animal bite.
[2022-07-25] MEDS: ampicillin-sulbactam 3 GM in sodium chloride 0.9% (plus) 50 ML IV (13:36)
[2022-07-25 14:57] VITALS: BP 145/70; PULSE 65; O2SAT 98
[2022-07-25] MEDS: rabies IG 300 unit/mL SDV 1 mL XX (15:31)
[2022-07-25 15:59] VITALS: BP 145/70; PULSE 65; RESP 18; TEMP 36.6
--- NOTE | 2022-07-25 16:00 | PC.NURSE ---
Pt thumb was cleaned and dressed
== END 2022-07-25 15:55 | disposition home or self-care (01) ==
PROVIDERS: Emergency Provider Family Medicine; PCP Family Medicine
DX: S61.052A Open bite of left thumb without damage to nail, initial encounter (principal); W54.0XXA Bitten by dog, initial encounter; Z29.14 Encounter for prophylactic rabies immune globulin; Z20.3 Contact with and (suspected) exposure to rabies; Z79.82 Long term (current) use of aspirin; F17.210 Nicotine dependence, cigarettes, uncomplicated; I25.10 Atherosclerotic heart disease of native coronary artery without angina pectoris; Z85.46 Personal history of malignant neoplasm of prostate
CPT/HCPCS: 12001; 73140; 90375; 90675; 96365; 99284; A6446; J0295

== ENCOUNTER → 2022-08-03 09:47 | Outpatient (BNVA) | payer OTHER, SELFPAY | PROVIDERS: PCP Family Medicine; Referring Provider Specialist; Visit Provider Specialist | DX: G61.81 Chronic inflammatory demyelinating polyneuritis (principal); G56.03 Carpal tunnel syndrome, bilateral upper limbs; G56.23 Lesion of ulnar nerve, bilateral upper limbs | CPT/HCPCS: 95909; 95910; 95913 ==

== ENCOUNTER 2022-08-04 09:45 | Outpatient (RCR) | payer OTHER, SELFPAY ==
[2022-08-02 11:01] VITALS: BP 112/71; PULSE 50; RESP 18; TEMP 36.7; O2SAT 100
[2022-08-03 11:05] VITALS: BP 128/79; PULSE 47; RESP 18; TEMP 36.9; O2SAT 98
[2022-08-04 10:23] VITALS: BP 109/78; PULSE 48; RESP 18; TEMP 37; O2SAT 97
== END 2022-08-11 23:59 | disposition home or self-care (01) ==
LOC: GILAB 09:45
PROVIDERS: PCP Family Medicine; Visit Provider Specialist
DX: G61.81 Chronic inflammatory demyelinating polyneuritis (principal)
CPT/HCPCS: 96365; 96366; J1459

== ENCOUNTER → 2022-08-09 12:52 | Outpatient (BNVA) | payer OTHER, SELFPAY | PROVIDERS: PCP Family Medicine; Visit Provider Podiatrist Foot & Ankle Surgery | DX: S92.353A Displaced fracture of fifth metatarsal bone, unspecified foot, initial encounter for closed fracture (principal); L60.3 Nail dystrophy; I73.9 Peripheral vascular disease, unspecified; X58.XXXA Exposure to other specified factors, initial encounter | CPT/HCPCS: 73630; 99214 ==

== ENCOUNTER 2022-08-23 10:44 | Outpatient (RCR) | payer OTHER, SELFPAY ==
[2022-08-23 11:45] VITALS: BP 109/66; PULSE 46; RESP 18; TEMP 36.7; O2SAT 97
== END 2022-08-24 07:23 | disposition home or self-care (01) ==
LOC: GILAB 10:44
PROVIDERS: PCP Family Medicine; Visit Provider Specialist
DX: G61.81 Chronic inflammatory demyelinating polyneuritis (principal)
CPT/HCPCS: 96365; 96366; J1459

== ENCOUNTER → 2022-08-31 08:21 | Outpatient (BNVA) | payer OTHER, SELFPAY | PROVIDERS: PCP Family Medicine; Visit Provider Specialist | DX: G61.81 Chronic inflammatory demyelinating polyneuritis (principal) | CPT/HCPCS: 99214 ==

== ENCOUNTER → 2022-09-15 09:00 | Day surgery (SDC) | payer OTHER, SELFPAY ==
[2022-09-15 09:29] VITALS: BP 116/67; PULSE 57; RESP 18; TEMP 36.7; O2SAT 98
--- NOTE | 2022-09-15 09:30 | PC.NURSE ---
Pt to GI infusions for IVIG infusion. Pt states at last appointment with Dr. Ohara on 08/31/22, Dr. Ohara told him he was to have labs drawn and a steroid prior to IVIG. Orders found in system for lab and drawn as ordered. No orders found for steroid. Office notified.
[2022-09-15 09:47] LABS: Basophils # 0.1 10^3/uL (0.0-0.1); Basophils % 0.8 %; Eosinophils # 0.5 10^3/uL (0.0-0.8); Eosinophils % 3.7 %; Hemoglobin 14.9 g/dL (11.7-16.6); Lymphocytes # 1.9 10^3/uL (0.8-4.8); Lymphocytes % 13.5 %; Mean Corpuscular HGB Conc 32.4 g/dL (30.0-36.0); Mean Corpuscular Hemoglobin 31.2 pg (28.0-34.0); Mean Corpuscular Volume 96.2 fl (80-94); Mean Platelet Volume 11.6 fL (7.4-10.4); Monocytes # 0.8 10^3/uL (0.2-0.9); Monocytes % 5.9 %; Neutrophils # 10.56 10^3/uL (1.8-7.7); Neutrophils % 75.6 %; Nucleated Red Blood Cells % 0 %; Platelet Count 204 10^3/cmm (130-400); Red Blood Count 4.78 10^6/uL (4.1-5.3); Red Cell Distribution Width 14.1 % (12.1-15.1)
[2022-09-15 10:06] LABS: Alanine Aminotransferase 22 U/L (0-41); Albumin Level 3.6 g/dL (3.5-5.2); Alkaline Phosphatase 82 U/L (40-130); Anion Gap 15.4 (5-19); Aspartate Amino Transferase 24 U/L (0-40); Blood Urea Nitrogen 29 mg/dL (8-23); Calcium 8.9 mg/dL (8.5-10.5); Carbon Dioxide 20 mmol/L (22-29); Chloride 110 mmol/L (98-107); Creatinine Clr Calc Pharmacy 77.3272; Globulin 3.3 g/dL (1.3-4.6); Glomerular Filtration Rate 74.3 mL/min (90-130); Glucose 108 mg/dL (65-115); Osmolality Calculated 298 mOsm/kg (285-295); Potassium 4.4 mmol/L (3.5-5.1); Sodium 141 mmol/L (136-145); Total Bilirubin 0.2 mg/dL (0.15-1.2); Total Protein 6.9 g/dL (6.6-8.7)
--- NOTE | 2022-09-15 12:30 | PC.NURSE ---
New orders received for patient to receive Solumedrol 125 mg IV prior to each IVIG infusion. Orders not received until after IVIG almost completely infused. Solumedrol given after dose of IVIG as ordered.
== END ==
PROVIDERS: PCP Family Medicine; Visit Provider Specialist
DX: G61.81 Chronic inflammatory demyelinating polyneuritis (principal)
CPT/HCPCS: 36415; 80053; 85025; 96365; 96366; 96374; J1459; J2930

== ENCOUNTER → 2022-09-23 12:17 | Outpatient (BNVA) | payer OTHER, SELFPAY | PROVIDERS: PCP Family Medicine; Visit Provider Internal Medicine | DX: R00.1 Bradycardia, unspecified (principal); G61.81 Chronic inflammatory demyelinating polyneuritis; F17.210 Nicotine dependence, cigarettes, uncomplicated; I45.10 Unspecified right bundle-branch block | CPT/HCPCS: 93005; 99204 ==

== ENCOUNTER → 2022-10-05 10:13 | Day surgery (SDC) | payer OTHER, SELFPAY ==
[2022-10-05 10:45] VITALS: BP 114/69; PULSE 53; RESP 18; TEMP 36.7; O2SAT 98
== END ==
PROVIDERS: PCP Family Medicine; Visit Provider Specialist
DX: G61.81 Chronic inflammatory demyelinating polyneuritis (principal)
CPT/HCPCS: 96365; 96366; 96374; J1459; J2930

== ENCOUNTER 2022-10-27 08:07 | Oncology outpatient (recurring) (ONCR) | payer OTHER, SELFPAY ==
[2022-10-27] VITALS (10 sets, daily range): BP systolic 105–146; BP diastolic 69–81; PULSE 50–63; RESP 16; TEMP 36.4–36.8; O2SAT 95–98
[2022-10-27] MEDS: sodium chloride 0.9% 250 ML 50 ML IV (08:57)
== END 2022-11-09 23:59 | disposition home or self-care (01) ==
PROVIDERS: PCP Family Medicine; Visit Provider Specialist
DX: D47.2 Monoclonal gammopathy (principal); M18.0 Bilateral primary osteoarthritis of first carpometacarpal joints; G61.81 Chronic inflammatory demyelinating polyneuritis
CPT/HCPCS: 96361; 96365; 96366; 96375; J1459; J2930; J7050

== ENCOUNTER 2022-11-08 08:31 | Outpatient (CLI) | payer OTHER, SELFPAY ==
[2022-11-08 08:44] VITALS: BMI 31.3
--- NOTE | 2022-11-08 09:23 | ECG_ITS ---
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 Interpretive Statements NAME OF STUDY: LEXISCAN SESTAMIBI STRESS TEST INDICATION: [Chest Pain; Shortness of Breath, ] Procedure: At the baseline, the blood pressure was 117/78 mmHg with a heart rate of 42 bpm. The electrocardiogram showed sinus bradycardia, normal axis with normal ST and T's. The Lexiscan was infused over a period of 20 seconds. A total of 0.4 mg of Lexiscan was infused. The stress phase was continued for a total of 5 minutes. Heart rate was at the end of stress phase was 59 bpm and a blood pressure of 94/62 mmHg. The EKG at the peak infusion revealed normal sinus rhythm with no significant ST-T wave changes. Sestamibi was injected 20 seconds after the Lexiscan infusion. Blood pressure at the end of recovery phase was 108/72 mmHg with a heart rate of 65 bpm. Conclusion: 1. Normal EKG response to Lexiscan infusion 2. No Lexiscan induced chest pain or cardiac arrhythmia. 3. Normal blood pressure and heart rate response. 4. Sestamibi/sestamibi perfusion scan pending; see separate report. Electronically Signed On 11-13-2022 18:52:07 ENVIRONMENTAL AUDITOR by Alejandro Antoine M.D. [id number]
--- NOTE | 2022-11-08 09:24 | NMCV_ITS ---
NM abrahan perf SPECT r/s* [id number] Foster Cintron Age: 67 Gender: M : 1955 Exam Date: 11/08/2022 09:48 Ordering Phys: Alejandro Antoine M.D ([email or web address]) Technologist: JET Miguel Exam Location: [facility] [place] Indications: SHORTNESS OF BREATH; CHEST PAIN STRESS TEST Please see separate stress test report in [facility] for full findings IMAGE PROTOCOL Rest/Stress 1 Lexiscan Day Radiopharmaceutical Dose (mCi) Administration Site Administered by Rest: Tc-99m 10.5 IV JET Palomino Sestamibi Stress:Tc-99m 32.7 IV JET Miguel Sestamithom Rest: 08-Nov-2022 60 Discovery 630 Stress: 08-Nov-2022 30 Discovery 630 0.4mg Lexiscan. Images obtained in supine and prone position. SPECT RESULTS Technical Quality: Excellent Raw Data Analysis: Normal Image Corrections: No attenuation or motion correction applied Summed Stress Score: 0 Summed Rest Score: 0 Summed Difference Score: 0 PERFUSION FINDINGS SPECT images demonstrate homogeneous tracer distribution throughout the myocardium. FUNCTIONAL RESULTS (calculated via Gated SPECT) Stress Image LV EF (%): 70 Stress EDV (mL):80 TID: 1.19 Stress ESV (mL):24 FUNCTIONAL FINDINGS: There is normal left ventricular systolic function. IMPRESSIONS 1. Normal myocardial perfusion imaging with no evidence of ischemia 2. LV systolic function is normal. Alejandro Antoine MD (Electronically Signed) Final Date: 08 November 2022 12:22 S
[2022-11-08 10:03] LABS: Free T4 Free Thyroxine 1.49 ng/dL (0.82-1.77)
[2022-11-08 11:10] VITALS: BP 108/72; PULSE 66
[2022-11-08] MEDS: regadenoson 0.4 Mg/5 ml Syringe IVP (11:10)
== END 2022-11-08 08:32 | disposition home or self-care (01) ==
LOC: CDL 08:34
PROVIDERS: Internal Medicine; PCP Family Medicine; Visit Provider Internal Medicine
DX: E05.00 Thyrotoxicosis with diffuse goiter without thyrotoxic crisis or storm (principal); E89.0 Postprocedural hypothyroidism; R00.1 Bradycardia, unspecified; M81.0 Age-related osteoporosis without current pathological fracture; Z79.890 Hormone replacement therapy
CPT/HCPCS: 36415; 78452; 84439; 84443; 93017; 96374; 99214; A9500; J2785

== ENCOUNTER 2022-11-15 09:33 | Outpatient (CLI) | payer OTHER, SELFPAY ==
[2022-11-15 10:33] LABS: Basophils # 0.1 10^3/uL (0.0-0.1); Basophils % 0.9 %; Eosinophils # 0.2 10^3/uL (0.0-0.8); Eosinophils % 2.9 %; Hematocrit 47.5 % (42.0-52.0); Hemoglobin 15.4 g/dL (11.7-16.6); Lymphocytes # 1.8 10^3/uL (0.8-4.8); Lymphocytes % 21.5 %; Mean Corpuscular HGB Conc 32.4 g/dL (30.0-36.0); Mean Corpuscular Hemoglobin 30.9 pg (28.0-34.0); Mean Corpuscular Volume 95.2 fl (80-94); Mean Platelet Volume 11.2 fL (7.4-10.4); Monocytes # 0.7 10^3/uL (0.2-0.9); Monocytes % 8.3 %; Neutrophils # 5.41 10^3/uL (1.8-7.7); Neutrophils % 65.9 %; Nucleated Red Blood Cells % 0 %; Platelet Count 228 10^3/cmm (130-400); Red Blood Count 4.99 10^6/uL (4.1-5.3); White Blood Count 8.2 10^3/uL (4.0-10.0)
[2022-11-15 10:56] LABS: Albumin Level 3.7 g/dL (3.5-5.2); Anion Gap 13.2 (5-19); Blood Urea Nitrogen 26 mg/dL (8-23); Calcium 9.3 mg/dL (8.5-10.5); Carbon Dioxide 23 mmol/L (22-29); Chloride 109 mmol/L (98-107); Glomerular Filtration Rate 66.4 mL/min (90-130); Glucose 79 mg/dL (65-115); Phosphorus 2.7 mg/dL (2.5-4.5); Potassium 4.2 mmol/L (3.5-5.1); Sodium 141 mmol/L (136-145)
[2022-11-15 10:57] LABS: Calcium 9.4 mg/dL (8.5-10.5)
[2022-11-15 11:09] LABS: Urine Creatinine 147 mg/dL (39-259); Urine Protein Random 8 mg/dL
[2022-11-15 11:10] LABS: UPRO/UCREAT Ratio 0.05 mg/mg CR
[2022-11-15 11:12] LABS: 25 Hydroxy Vitamin D 43 ng/mL (30-100)
== END 2022-11-15 09:34 | disposition home or self-care (01) ==
PROVIDERS: PCP Family Medicine; Visit Provider Internal Medicine
DX: N18.2 Chronic kidney disease, stage 2 (mild) (principal); M81.0 Age-related osteoporosis without current pathological fracture
CPT/HCPCS: 36415; 80069; 82306; 82310; 82570; 83970; 84156; 85025

== ENCOUNTER 2022-12-08 10:14 | Oncology outpatient (recurring) (ONCR) | payer OTHER, SELFPAY ==
[2022-11-17] VITALS (8 sets, daily range): BP systolic 113–142; BP diastolic 72–83; PULSE 47–76; RESP 16–18; TEMP 36.6–36.8; O2SAT 96–98
[2022-11-17] MEDS: sodium chloride 0.9% 250 ML 50 ML IV (10:47)
--- NOTE | 2022-12-08 16:26 | PC.NURSE ---
Patient came in for the IVIG with the entrance to the infusion suite stating he had to be done by 2:30 and I better have it ready soon. I did tell him I couldn't exact the time for departure since the start time wasn't as yet with his request to do it another day which was rescheduled for 9:00 am on TuesdayDecember 13 with the planner/scheduler resetting all his morning appointments to be a 9:00am so he could get out of the treatment early enough.[email or web address]
== END 2022-12-10 23:59 | disposition home or self-care (01) ==
PROVIDERS: PCP Family Medicine; Visit Provider Specialist
DX: Z53.9 Procedure and treatment not carried out, unspecified reason (principal); G61.81 Chronic inflammatory demyelinating polyneuritis; Z79.899 Other long term (current) drug therapy
CPT/HCPCS: 96361; 96365; 96366; 96375; J1459; J2930; J7050

== ENCOUNTER 2022-12-16 08:59 | Oncology outpatient (recurring) (ONCR) | payer OTHER, SELFPAY ==
[2022-12-16] VITALS (8 sets, daily range): BP systolic 97–124; BP diastolic 68–83; PULSE 42–61; RESP 16; TEMP 36.5–37.2; O2SAT 96–99
[2022-12-16] MEDS: sodium chloride 0.9% 250 ML 50 ML IV (09:59)
== END 2022-12-23 16:08 | disposition home or self-care (01) ==
LOC: ONCMED 08:59
PROVIDERS: PCP Family Medicine; Visit Provider Specialist
DX: G61.81 Chronic inflammatory demyelinating polyneuritis; Z79.899 Other long term (current) drug therapy
CPT/HCPCS: 73130; 96365; 96366; 96375; 99214; J1459; J2930; J7050

== ENCOUNTER 2022-12-17 08:49 | Outpatient (CLI) | payer OTHER, SELFPAY ==
--- NOTE | 2022-12-17 08:55 | US_ITS ---
WS: [id number] RENAL ULTRASOUND HISTORY: CHRONIC KIDNEY DZ STAGE 2 COMPARISON: None available. TECHNIQUE: 2-D and color Doppler imaging of the kidney submitted. Right kidney: 9.6 cm x 4.5 cm x 4.7 cm. Cortex: 1.5 cm Normal echogenicity with no hydronephrosis or mass. Left kidney: 10.4 cm x 4.8 cm x 5.3 cm. Cortex: 1.7 cm Normal echogenicity with no hydronephrosis or mass. Aorta: Poorly visualized. Mild atherosclerosis. Urinary Bladder: Distended US/US renal BI* [id number] IMPRESSION: Normal renal ultrasound.
== END 2022-12-17 08:50 | disposition home or self-care (01) ==
LOC: RAD 08:49
PROVIDERS: PCP Family Medicine; Visit Provider Internal Medicine
DX: N18.2 Chronic kidney disease, stage 2 (mild) (principal)
CPT/HCPCS: 76770

== ENCOUNTER 2022-12-24 08:30 | Oncology outpatient (recurring) (ONCR) | payer OTHER, SELFPAY ==
[2022-12-24] MEDS: denosumab 60 mg SDV SUBCUT (08:44)
[2022-12-24 08:49] VITALS: BP 122/82; PULSE 68; RESP 16; TEMP 36.8; O2SAT 99
[2022-12-24 08:50] VITALS: BP 128/74; PULSE 72; RESP 16; TEMP 36.8; O2SAT 99
== END 2023-01-09 23:59 | disposition home or self-care (01) ==
PROVIDERS: PCP Family Medicine; Visit Provider Specialist
DX: M81.0 Age-related osteoporosis without current pathological fracture (principal)
CPT/HCPCS: 96372; J0897

== ENCOUNTER → 2023-01-06 10:39 | Outpatient (BNVA) | payer OTHER, SELFPAY | PROVIDERS: PCP Family Medicine; Visit Provider Specialist | DX: G61.81 Chronic inflammatory demyelinating polyneuritis (principal); D47.2 Monoclonal gammopathy; L27.1 Localized skin eruption due to drugs and medicaments taken internally; T50.905A Adverse effect of unspecified drugs, medicaments and biological substances, initial encounter | CPT/HCPCS: 99214 ==

== ENCOUNTER 2023-01-10 08:36 | Oncology outpatient (recurring) (ONCR) | payer OTHER, SELFPAY ==
[2023-01-10] VITALS (9 sets, daily range): BP systolic 108–126; BP diastolic 67–80; PULSE 18–60; RESP 18–60; TEMP 36.4–36.8; O2SAT 98–99
[2023-01-10] MEDS: sodium chloride 0.9% 250 ML 75 ML IV (08:59)
[2023-01-10 13:42] LABS: Basophils % 0.4 %; Eosinophils # 0.2 10^3/uL (0.0-0.8); Eosinophils % 1.5 %; Hematocrit 45.4 % (42.0-52.0); Hemoglobin 14.5 g/dL (11.7-16.6); Lymphocytes # 0.7 10^3/uL (0.8-4.8); Lymphocytes % 7.2 %; Mean Corpuscular HGB Conc 31.9 g/dL (30.0-36.0); Mean Corpuscular Hemoglobin 30.5 pg (28.0-34.0); Mean Corpuscular Volume 95.6 fl (80-94); Mean Platelet Volume 11.2 fL (7.4-10.4); Monocytes # 0.1 10^3/uL (0.2-0.9); Monocytes % 1.2 %; Neutrophils # 9.16 10^3/uL (1.8-7.7); Neutrophils % 89.3 %; Nucleated Red Blood Cells % 0 %; Platelet Count 218 10^3/cmm (130-400); Red Blood Count 4.75 10^6/uL (4.1-5.3); Red Cell Distribution Width 14.1 % (12.1-15.1); White Blood Count 10.3 10^3/uL (4.0-10.0)
[2023-01-10 13:58] LABS: Alanine Aminotransferase 14 U/L (0-41); Albumin Level 3.2 g/dL (3.5-5.2); Alkaline Phosphatase 50 U/L (40-130); Anion Gap 11.3 (5-19); Aspartate Amino Transferase 20 U/L (0-40); Blood Urea Nitrogen 26 mg/dL (8-23); Calcium 8.4 mg/dL (8.5-10.5); Carbon Dioxide 20 mmol/L (22-29); Chloride 107 mmol/L (98-107); Glomerular Filtration Rate 66.4 mL/min (90-130); Glucose 126 mg/dL (65-115); Osmolality Calculated 284 mOsm/kg (285-295); Potassium 4.3 mmol/L (3.5-5.1); Sodium 134 mmol/L (136-145); Total Bilirubin 0.3 mg/dL (0.15-1.2); Total Protein 9.2 g/dL (6.6-8.7)
[2023-01-10 14:09] LABS: Prostate Specific AG Urology < 0.01 ng/mL (0-4)
== END 2023-01-10 23:59 | disposition home or self-care (01) ==
PROVIDERS: Urology; PCP Family Medicine; Visit Provider Specialist
DX: G61.81 Chronic inflammatory demyelinating polyneuritis; Z79.899 Other long term (current) drug therapy; D47.2 Monoclonal gammopathy; Z12.5 Encounter for screening for malignant neoplasm of prostate
CPT/HCPCS: 80053; 84153; 85025; 96365; 96366; 96375; J1459; J2930; J7050

== ENCOUNTER → 2023-01-13 10:51 | Outpatient (BNVA) | payer OTHER, SELFPAY | PROVIDERS: PCP Family Medicine; Visit Provider Urology | DX: R32 Unspecified urinary incontinence (principal); R31.29 Other microscopic hematuria; Z85.46 Personal history of malignant neoplasm of prostate | CPT/HCPCS: 81003; 99213 ==

== ENCOUNTER 2023-01-14 12:25 | Outpatient (CLI) | payer OTHER, SELFPAY ==
[2023-01-14 14:21] LABS: Anion Gap 14.1 (5-19); Blood Urea Nitrogen 28 mg/dL (8-23); Carbon Dioxide 22 mmol/L (22-29); Chloride 107 mmol/L (98-107); Glomerular Filtration Rate 54.7 mL/min (90-130); Glucose 81 mg/dL (65-115); NT Pro B Type Natriuretic Pept 270 pg/mL (0-125); Osmolality Calculated 293 mOsm/kg (285-295); Potassium 4.1 mmol/L (3.5-5.1); Sodium 139 mmol/L (136-145)
== END 2023-01-14 12:26 | disposition home or self-care (01) ==
LOC: LAB 12:31
PROVIDERS: PCP Family Medicine; Visit Provider Internal Medicine
DX: R00.1 Bradycardia, unspecified (principal); G61.81 Chronic inflammatory demyelinating polyneuritis; F17.210 Nicotine dependence, cigarettes, uncomplicated; E05.00 Thyrotoxicosis with diffuse goiter without thyrotoxic crisis or storm
CPT/HCPCS: 36415; 80048; 83880; 99214

== ENCOUNTER 2023-01-31 09:30 | Oncology outpatient (recurring) (ONCR) | payer OTHER, SELFPAY | END 2023-02-09 23:59 | disposition home or self-care (01) | PROVIDERS: PCP Family Medicine; Visit Provider Specialist | DX: Z53.9 Procedure and treatment not carried out, unspecified reason ==

== ENCOUNTER 2023-02-02 09:01 | Outpatient (CLI) | payer OTHER, SELFPAY ==
--- NOTE | 2023-02-02 09:09 | USCV_ITS ---
Saida Foster Age: 67 Gender: M : 1955 Exam Date: 02/02/2023 09:44 Ordering Phys: Alejandro Antoine M.D ([email or web address]) Technologist: [place]am [place] [facility] [place]ication: mart cardia BP: 132 / 73 HR: 53 Rhythm: Sinus Technical Quality: Adequate MEASUREMENTS (Male / Female) Normal Values 2D ECHO LVOT Diameter 2.0 cm LV Ejection Fraction MOD 2C 71.4 % LV Ejection Fraction 2C AL 71.8 % LA Diameter 3.5 cm IVC Diameter 1.7 cm M-MODE Aortic Annulus Diameter 3.3 cm LA Ao Ratio MM 1.1 MV E Point Septal Separation 1.5 cm DOPPLER AV Peak Velocity 182.0 cm/s LVOT Peak Velocity 127.0 cm/s AV Area Cont Eq vti 2.4 cm squared AV Area Cont Eq pk 2.2 cm squared MV Area PHT 3.6 cm squared Mitral E to A Ratio 1.9 MV E' Velocity 42.5 cm/s Mitral E to MV E' Ratio 6.3 Mitral E to LV E' Lateral Ratio 4.9 Mitral E to LV E' Septal Ratio 8.6 TR Peak Velocity 252.3 cm/s TR Peak Gradient 25.5 mmHg Right Atrial Pressure 3.0 mmHg Pulmonary Artery Systolic Pressu 28.5 mmHg FINDINGS Left Ventricle Left ventricle is normal size. LV systolic function is normal with EF of 60 to 65%. No regional wall motion abnormalities are seen. Right Ventricle Normal in size and function Right Atrium Normal in size Left Atrium Normal in size Mitral Valve Mild mitral annular calcification is seen. Aortic Valve Aortic valve is thickened and calcified. No significant stenosis is seen. Mild aortic regurgitation. Tricuspid Valve Mild tricuspid regurgitation. Pulmonary artery systolic pressure is normal. Pulmonic Valve Not well visualized Pericardium Normal Aorta Normal in size IVC Appears to be normal CONCLUSIONS LV systolic function is normal with EF of 60 to 65% Mild aortic regurgitation Mild tricuspid regurgitation No comparison studies are available Alejandro Antoine MD (Electronically Signed) Final Date: 11 February 2023 16:55 S
== END 2023-02-02 09:02 | disposition home or self-care (01) ==
PROVIDERS: PCP Family Medicine; Visit Provider Internal Medicine
DX: R07.9 Chest pain, unspecified (principal); R06.02 Shortness of breath
CPT/HCPCS: 93306

== ENCOUNTER → 2023-11-08 11:52 | Outpatient (BNVA) | payer OTHER, SELFPAY | PROVIDERS: PCP Family Medicine; Visit Provider Internal Medicine | DX: E89.0 Postprocedural hypothyroidism (principal); M81.0 Age-related osteoporosis without current pathological fracture | CPT/HCPCS: 36415; 80053; 82306; 84439; 84443; 99214 ==

== ENCOUNTER 2023-11-14 11:04 | Oncology outpatient (recurring) (ONCR) | payer OTHER, SELFPAY ==
[2023-11-14 11:22] VITALS: BP 108/67; PULSE 49; RESP 16; TEMP 36.6; O2SAT 96
[2023-11-14] MEDS: denosumab 60 mg SDV SUBCUT (11:36)
== END 2023-12-11 23:59 | disposition home or self-care (01) ==
PROVIDERS: PCP Family Medicine; Visit Provider Nurse Practitioner Family
DX: G61.81 Chronic inflammatory demyelinating polyneuritis (principal); R00.1 Bradycardia, unspecified; I25.10 Atherosclerotic heart disease of native coronary artery without angina pectoris; Z53.9 Procedure and treatment not carried out, unspecified reason
CPT/HCPCS: 96402; 99214; J0897

== ENCOUNTER → 2023-11-24 09:21 | Outpatient (BNVA) | payer OTHER, SELFPAY | PROVIDERS: PCP Family Medicine; Visit Provider Specialist | DX: R29.90 Unspecified symptoms and signs involving the nervous system (principal); G61.81 Chronic inflammatory demyelinating polyneuritis | CPT/HCPCS: 99215 ==

== ENCOUNTER 2023-12-13 10:00 | Oncology outpatient (recurring) (ONCR) | payer OTHER, SELFPAY ==
[2023-12-12] VITALS (9 sets, daily range): BP systolic 114–129; BP diastolic 70–86; PULSE 48–56; RESP 16; TEMP 35.8–36.8; O2SAT 94–95
--- NOTE | 2023-12-12 10:39 | PC.PHAR ---
CLARIFIED PRE-MEDS WITH DR. MORRIS: GIVE BENADRYL 50MG PO, SOLU-MEDROL 125MG AND TYLENOL 650MG PRIOR TO EACH TREATMENT. UPDATED TREATMENT PLAN.
[2023-12-12] MEDS: sodium chloride 0.9% 250 ML 75 ML IV (10:52)
[2023-12-12] MEDS: methylPREDNISolone sod succ 125 mg/2 mL INJ IVP (10:52)
[2023-12-12] MEDS: acetaminophen 325 mg Tablet 650 MG PO (10:52)
[2023-12-12] MEDS: diphenhydrAMINE 25 mg Capsule 50 MG PO (10:52)
[2023-12-12 11:37] LABS: Basophils # 0.1 10^3/uL (0.0-0.1); Basophils % 1.2 %; Eosinophils # 0.5 10^3/uL (0.0-0.8); Eosinophils % 4.9 %; Hematocrit 44.9 % (37-53); Lymphocytes # 3.4 10^3/uL (0.8-4.8); Lymphocytes % 32.2 %; Mean Corpuscular HGB Conc 32.7 g/dL (30-55); Mean Corpuscular Hemoglobin 31.3 pg (27-33); Mean Corpuscular Volume 95.5 fl (82-101); Mean Platelet Volume 11.3 fL (7.4-10.4); Monocytes # 0.9 10^3/uL (0.2-0.9); Monocytes % 8.3 %; Neutrophils # 5.55 10^3/uL (1.8-7.7); Neutrophils % 52.8 %; Nucleated Red Blood Cells % 0 %; Platelet Count 244 10^3/cmm (157-399); Red Cell Distribution Width 13.7 % (12.1-15.1)
[2023-12-12] MEDS: immune globulin (Privigen ONC) 40 GM in empty flexible container 1 EACH IV (11:48)
[2023-12-13] VITALS (9 sets, daily range): BP systolic 101–138; BP diastolic 65–82; PULSE 51–66; RESP 16–17; TEMP 36.1–36.8; O2SAT 96–98
[2023-12-13] MEDS: diphenhydrAMINE 25 mg Capsule 50 MG PO ×2 (10:46→11:00)
[2023-12-13] MEDS: sodium chloride 0.9% 250 ML 75 ML IV (10:46)
[2023-12-13] MEDS: acetaminophen 325 mg Tablet 650 MG PO (10:46)
[2023-12-13] MEDS: methylPREDNISolone sod succ 125 mg/2 mL INJ IVP (10:50)
[2023-12-13 10:51] LABS: Alanine Aminotransferase 14 U/L (0-41); Albumin Level 3.4 g/dL (3.5-5.2); Alkaline Phosphatase 62 U/L (40-130); Aspartate Amino Transferase 14 U/L (0-40); Blood Urea Nitrogen 29 mg/dL (8-23); Calcium 8.5 mg/dL (8.5-10.5); Carbon Dioxide 22 mmol/L (22-29); Chloride 110 mmol/L (98-107); Globulin 3.1 g/dL (1.3-4.6); Glomerular Filtration Rate 54.6 mL/min (90-130); Glucose 123 mg/dL (65-115); Osmolality Calculated 297 mOsm/kg (285-295); Sodium 140 mmol/L (136-145); Total Bilirubin 0.3 mg/dL (0.15-1.2); Total Protein 6.5 g/dL (6.6-8.7)
[2023-12-13 10:54] LABS: Creatinine Clr Calc Pharmacy 61.9009
[2023-12-13] MEDS: immune globulin (Privigen ONC) 40 GM in empty flexible container 1 EACH IV (11:30)
== END 2023-12-13 23:59 | disposition home or self-care (01) ==
PROVIDERS: Specialist; PCP Family Medicine; Visit Provider Nurse Practitioner Family
DX: G61.81 Chronic inflammatory demyelinating polyneuritis (principal); Z53.9 Procedure and treatment not carried out, unspecified reason
CPT/HCPCS: 80053; 85025; 96365; 96366; 96375; J1459; J2919; J7050

== ENCOUNTER 2023-12-15 10:00 | Oncology outpatient (recurring) (ONCR) | payer OTHER, SELFPAY ==
[2023-12-14] VITALS (7 sets, daily range): BP systolic 124–142; BP diastolic 72–87; PULSE 50–60; RESP 16; TEMP 36.2–37; O2SAT 96–97
[2023-12-14] MEDS: methylPREDNISolone sod succ 125 mg/2 mL INJ IVP (10:21)
[2023-12-14] MEDS: diphenhydrAMINE 25 mg Capsule 50 MG PO (10:22)
[2023-12-14] MEDS: acetaminophen 325 mg Tablet 650 MG PO (10:22)
[2023-12-14] MEDS: immune globulin (Privigen ONC) 40 GM in empty flexible container 1 EACH 31.1999999999999993 GM IV (11:18)
[2023-12-15] VITALS (7 sets, daily range): BP systolic 127–132; BP diastolic 79–83; PULSE 50–53; RESP 16–18; TEMP 35.7–36.9; O2SAT 94–98
[2023-12-15] MEDS: diphenhydrAMINE 25 mg Capsule 50 MG PO (10:13)
[2023-12-15] MEDS: acetaminophen 325 mg Tablet 650 MG PO (10:14)
[2023-12-15] MEDS: methylPREDNISolone sod succ 125 mg/2 mL INJ IVP (10:20)
[2023-12-15] MEDS: immune globulin (Privigen ONC) 40 GM in empty flexible container 1 EACH IV (10:49)
== END 2023-12-15 23:59 | disposition home or self-care (01) ==
PROVIDERS: PCP Family Medicine; Visit Provider Nurse Practitioner Family
DX: G61.81 Chronic inflammatory demyelinating polyneuritis; Z53.9 Procedure and treatment not carried out, unspecified reason
CPT/HCPCS: 96367; 96413; 96415; J1459; J2919

== ENCOUNTER 2024-01-05 10:30 | Oncology outpatient (recurring) (ONCR) | payer OTHER, SELFPAY ==
[2023-12-16] VITALS (9 sets, daily range): BP systolic 132–158; BP diastolic 79–93; PULSE 46–56; RESP 16; TEMP 35.8–36.8; O2SAT 96–98
[2023-12-16] MEDS: acetaminophen 325 mg Tablet 650 MG PO ×2 (08:20→08:43)
[2023-12-16] MEDS: diphenhydrAMINE 25 mg Capsule 50 MG PO (08:21)
[2023-12-16] MEDS: methylPREDNISolone sod succ 125 mg/2 mL INJ IVP (08:38)
[2023-12-16] MEDS: immune globulin (Privigen ONC) 40 GM in empty flexible container 1 EACH 0.299999999999999989 GM IV (08:40)
--- NOTE | 2023-12-16 11:58 | PC.NURSE ---
On 12/12/23 this RN at chairside setting up patient treatment, patient began making sexual comments such as him stating, my downstairs doesn't work that good anymore, but my upstairs works just fine and you'd be satisfied. Upon coming back to chairside for further treatment with Lisa Stern RN the patient then began to ask both RNs if we had ever been with a man who had a victoria, along with stating, they are silky smooth to sit on . Patient was then informed that the comments were inappropriate and that they are making the staff uncomfortable. ESTARDA Winkler was then informed of the situation and she spoke with patient and informed that his comments would not be tolerated. this note is a late note.
[2024-01-05] VITALS (11 sets, daily range): BP systolic 111–143; BP diastolic 69–89; PULSE 44–56; RESP 16–17; TEMP 35.6–36.6; O2SAT 95–99
[2024-01-05] MEDS: sodium chloride 0.9% 250 ML 75 ML IV (11:05)
[2024-01-05] MEDS: methylPREDNISolone sod succ 125 mg/2 mL INJ IVP (11:05)
[2024-01-05] MEDS: diphenhydrAMINE 25 mg Capsule 50 MG PO (11:19)
[2024-01-05] MEDS: acetaminophen 325 mg Tablet 650 MG PO (11:19)
[2024-01-05] MEDS: IMMUNE GLOBULIN IV (11:45)
[2024-01-05] MEDS: [UNRECOGNIZED DRUG - OTHER] IV (11:45)
== END 2024-01-05 23:59 | disposition home or self-care (01) ==
PROVIDERS: PCP Family Medicine; Visit Provider Nurse Practitioner Family
DX: G61.81 Chronic inflammatory demyelinating polyneuritis (principal); Z53.9 Procedure and treatment not carried out, unspecified reason
CPT/HCPCS: 96365; 96366; 96375; J1459; J2919; J7050

== ENCOUNTER 2024-02-19 13:49 | Emergency (ER) | payer OTHER, SELFPAY ==
--- NOTE | 2024-02-19 13:52 | XRR_ITS ---
PROCEDURE INFORMATION: Exam: XR Left Wrist Exam date and time: 02/19/2024 2:07 PM Age: 68 years old Clinical indication: Injury or trauma; Fall; Patient HX: Lt wrist pain post foosh TECHNIQUE: Imaging protocol: Radiologic exam of the left wrist. Views: 3 or more views. COMPARISON: No relevant prior studies available. FINDINGS: Bones/joints: No fracture or dislocation is seen about the left wrist. Lateral view demonstrates small ill-defined calcific density along the dorsal margin of the distal radius. This could indicate a small or tiny avulsion injury. Osseous structures and joint spaces show no acute abnormality. Soft tissues: No significant focal soft tissue abnormality. XR/XR wrist LT min 3V* [id number] IMPRESSION: 1. No fracture or dislocation. 2. Small ill-defined calcific density along the dorsal margin of the distal radius on the lateral view could indicate tiny avulsion injury of acute or chronic nature otherwise.
[2024-02-19 14:17] VITALS: BP 139/75; PULSE 42; RESP 17; TEMP 36.6; O2SAT 99; BMI 34.9
--- NOTE | 2024-02-19 15:28 | ED_ITS ---
HPI - Fall General: Chief Complaint: Fall Stated Complaint: left wrist pain, fall Time Seen by Provider: 02/19/24 15:28 History of Present Illness: 68-year-old male patient fell this after noon around 1230 when he was walking out to feed his pets. Patient reports falling forward and catching himself with both arms outstretched. Patient reports pain in the left wrist has persisted. Patient appears nontoxic. Patient appears in no acute distress. Review of Systems General: Reports: 10 or more systems reviewed and unremarkable except in HPI and below Musc: Reports: joint pain (Left wrist) PFSH ED PFSH: Medical History Peripheral neuropathy Degenerative joint disease of spine History of Graves' disease Microhematuria History of prostate cancer Hypothyroidism following radioiodine therapy Depression Anxiety Obstructive sleep apnea Osteoarthritis Osteoporosis Hypogonadism Bladder incontinence Impotence Coronary artery disease Bradycardia Surgical History History of penile implant History of implantation of artificial sphincter (2015) History of radical prostatectomy (2014) S/P left rotator cuff repair History of coronary artery stent placement (2019) History of right inguinal hernia repair Family History Mother Brain aneurysm Diabetes CAD (coronary artery disease) Stroke Father Hodgkins disease Grandmother Stroke Other Cancer Chronic kidney disease (CKD) Hyperlipidemia Hypertension Denies family history of Clotting disorder Dementia Psychiatric illness Suicide Anesthesia complication Bleeding disorder Lung disease Social History Smoking and tobacco/nicotine status: current every day tobacco/nicotine user cigarettes Packs smoked per day: 1 Years cigarettes smoked: 40 Second hand smoke exposure: Yes Alcohol intake: current Alcohol intake frequency: holidays/special occasions only Marital status: Current occupational status: disabled Physical Exam Const: COMMON NORMALS: alert HENMT: COMMON NORMALS: normocephalic HEAD & SCALP: normocephalic Neck/C-Spine: COMMON NORMALS: full ROM Chest: COMMONS NORMALS: normal inspection of the chest Resp: COMMON NORMALS: normal respiratory effort GI: COMMON NORMALS: non-tender Back/Pelvis: COMMON NORMALS: thoracic and lumbar spine normal to inspection Extremity: LEFT UPPER EXTREMITY: Yes wrist (Dorsal tenderness of the left wrist, mild swelling.) Left wrist: Yes inspection, Yes palpation, Yes ROM (Decreased range of motion due to pain and swelling) and Yes neurovascular exam Neuro: SENSORIUM/ORIENTATION: Yes alert Skin: COMMON NORMALS: turgor normal GENERAL SKIN EXAM: turgor normal Course Vital Signs: Vital signs: Vital Signs Temperature 98 F 02/19/24 14:17 Pulse Rate 42 L 02/19/24 14:17 Respiratory Rate 17 02/19/24 14:17 Blood Pressure 139/75 02/19/24 14:17 Pulse Oximetry 99 02/19/24 14:17 Oxygen Delivery Me thod Room Air 02/19/24 14:17 MDM - Fall Medical Decision Making 68-year-old male patient comes in today for complaints of injury to the left wrist. On exam patient appears nontoxic. Patient does have some swelling to the joint line dorsal aspect of the left wrist. Differential diagnosis includes sprain, fracture, contusion. X-ray notes a abnormality which possibly could be an avulsion fracture to the dorsal part of the left wrist. Tenderness and swelling is noted along this area believe patient most likely does have a fracture. Patient was placed in a cock-up splint and recommended to follow-up with orthopedics. Patient reported understanding and agreed to plan. Lab Data Radiology Impressions Wrist X-Ray 02/19/24 13:52 IMPRESSION: 1. No fracture or dislocation. 2. Small ill-defined calcific density along the dorsal margin of the distal radius on the lateral view could indicate tiny avulsion injury of acute or chronic nature otherwise. All radiology interpretation(s) finalized by discharge Discharge Plan Discharge Patient Disposition: Home Clinical Impression: Avulsion fracture of left wrist Condition: Stable Prescriptions: No Action aspirin 81 mg tablet,delayed release (DR/EC) 81 mg PO DAILY cholecalciferol (vitamin D3) 100 mcg (4,000 unit) capsule 100 mcg PO BID atorvastatin 40 mg tablet 80 mg PO DAILY duloxetine 60 mg capsule,delayed release(DR/EC) 60 mg PO BID topiramate 50 mg tablet 25 mg PO BID bupropion HCl [Wellbutrin XL] 300 mg tablet extended release 24 hr 300 mg PO QAM clopidogrel [Plavix] 75 mg tablet 75 mg PO DAILY Qty: 90 3RF omeprazole 20 mg capsule,delayed release(DR/EC) 20 mg PO DAILY triamcinolone acetonide 0.5 % cream 1 applic topical QID Qty: 15 5RF Rx Instructions: apply to palms with each hand wash montelukast [Singulair] 10 mg tablet 10 mg PO DAILY Qty: 30 5RF furosemide [Lasix] 20 mg tablet 20 mg PO DAILY Qty: 90 3RF Prolia 60 mg/mL syringe 60 mg SUBCUT .Every 6 months Qty: 1 3RF gabapentin 400 mg capsule 400 mg PO QID Qty: 120 5RF levothyroxine 112 mcg tablet 112 mcg PO DAILY Qty: 30 0RF Rx Instructions: take one tablet daily diphenhydramine HCl [Allergy (diphenhydramine)] 25 mg capsule 25 mg PO ONCE Qty: 90 3RF Rx Instructions: take at bedtime for reaction to IVIG treatments Discharge Orders: Discharge ED (Routine); Ordered 02/19/24 Ordered By: Rich Damon Referrals: Calli Marcelo MD [Primary Care Provider] - Discharge Diet: Usual diet Discharge Activity: Limit activity as instructed Patient Instructions: Splint Care (ED) Activity Restrictions/Additional Instructions: Follow-up with orthopedics office for further evaluation and treatment. Return to ED for new concerns. Coding Level of Care Code ED Environmental Services Specialist for Larry Herrmann
--- NOTE | 2024-02-19 15:48 | DCPLANNER ---
Sent follow up request to the ortho clinic 02/19/24 @[id number]
== END 2024-02-19 16:17 | disposition home or self-care (01) ==
PROVIDERS: Emergency Provider Nurse Practitioner Family; PCP Family Medicine
DX: S62.102A Fracture of unspecified carpal bone, left wrist, initial encounter for closed fracture (principal); Z79.02 Long term (current) use of antithrombotics/antiplatelets; Z79.82 Long term (current) use of aspirin; F17.210 Nicotine dependence, cigarettes, uncomplicated; Z85.46 Personal history of malignant neoplasm of prostate; I25.10 Atherosclerotic heart disease of native coronary artery without angina pectoris; W18.39XA Other fall on same level, initial encounter
CPT/HCPCS: 29125; 73110; 99283

== ENCOUNTER → 2024-02-28 14:49 | Outpatient (BNVA) | payer OTHER, SELFPAY | PROVIDERS: PCP Family Medicine; Visit Provider Orthopaedic Surgery | DX: S52.552A Other extraarticular fracture of lower end of left radius, initial encounter for closed fracture; X58.XXXA Exposure to other specified factors, initial encounter; M25.532 Pain in left wrist | CPT/HCPCS: 73110; 99203 ==

== ENCOUNTER 2024-02-28 15:34 | Outpatient (CLI) | payer OTHER, SELFPAY | END 2024-02-28 15:35 | disposition home or self-care (01) | LOC: SPT 15:35 | PROVIDERS: PCP Family Medicine; Visit Provider Orthopaedic Surgery | DX: Z46.89 Encounter for fitting and adjustment of other specified devices (principal); M25.531 Pain in right wrist; M25.532 Pain in left wrist | CPT/HCPCS: 97760; L3908 ==

== ENCOUNTER 2024-03-08 09:50 | Oncology outpatient (recurring) (ONCR) | payer OTHER, SELFPAY ==
[2024-03-08] VITALS (9 sets, daily range): BP systolic 95–168; BP diastolic 64–74; PULSE 43–86; RESP 16–18; TEMP 36.4–36.8; O2SAT 94–96
[2024-03-08] MEDS: sodium chloride 0.9% 250 ML 75 ML IV (10:35)
[2024-03-08] MEDS: diphenhydrAMINE 25 mg Capsule PO (11:03)
[2024-03-08] MEDS: [UNRECOGNIZED DRUG - OTHER] IV (11:52)
[2024-03-08] MEDS: IMMUNE GLOBULIN IV (11:52)
== END 2024-03-08 23:59 | disposition home or self-care (01) ==
PROVIDERS: PCP Family Medicine; Visit Provider Nurse Practitioner Family
DX: G61.81 Chronic inflammatory demyelinating polyneuritis (principal); Z79.620 Long term (current) use of immunosuppressive biologic
CPT/HCPCS: 96365; 96366; 96367; J1459; J2919; J7050

== ENCOUNTER → 2024-03-22 15:20 | Outpatient (BNVA) | payer OTHER, SELFPAY | PROVIDERS: PCP Family Medicine; Visit Provider Orthopaedic Surgery | DX: S52.552A Other extraarticular fracture of lower end of left radius, initial encounter for closed fracture (principal); X58.XXXA Exposure to other specified factors, initial encounter | CPT/HCPCS: 73110; 99213 ==

== ENCOUNTER 2024-03-29 10:03 | Oncology outpatient (recurring) (ONCR) | payer OTHER, SELFPAY ==
[2024-03-29] VITALS (9 sets, daily range): BP systolic 92–138; BP diastolic 65–83; PULSE 36–84; RESP 16; TEMP 35.6–36.6; O2SAT 96–99
[2024-03-29] MEDS: diphenhydrAMINE 25 mg Capsule 50 MG PO (11:21)
[2024-03-29] MEDS: acetaminophen 325 mg Tablet 650 MG PO (11:21)
[2024-03-29] MEDS: IMMUNE GLOBULIN IV (12:06)
[2024-03-29] MEDS: [UNRECOGNIZED DRUG - OTHER] IV (12:06)
== END 2024-03-29 23:59 | disposition home or self-care (01) ==
LOC: ONCMED 10:03
PROVIDERS: PCP Family Medicine; Visit Provider Nurse Practitioner Family
DX: G61.81 Chronic inflammatory demyelinating polyneuritis (principal); Z79.899 Other long term (current) drug therapy; M81.0 Age-related osteoporosis without current pathological fracture
CPT/HCPCS: 96365; 96366; 96367; J1459; J2919; J7050

== ENCOUNTER → 2024-04-11 14:51 | Outpatient (BNVA) | payer OTHER, SELFPAY | PROVIDERS: PCP Family Medicine; Visit Provider Specialist | DX: R29.90 Unspecified symptoms and signs involving the nervous system (principal); G61.81 Chronic inflammatory demyelinating polyneuritis | CPT/HCPCS: 99214 ==

== ENCOUNTER → 2024-04-17 10:04 | Outpatient (BNVA) | payer OTHER, SELFPAY | PROVIDERS: PCP Family Medicine; Visit Provider Nurse Practitioner Family | DX: R00.1 Bradycardia, unspecified (principal); I25.10 Atherosclerotic heart disease of native coronary artery without angina pectoris; Z72.0 Tobacco use | CPT/HCPCS: 99214 ==

== ENCOUNTER 2024-04-23 07:41 | Oncology outpatient (recurring) (ONCR) | payer OTHER, SELFPAY ==
[2024-04-23] VITALS (10 sets, daily range): BP systolic 90–146; BP diastolic 61–83; PULSE 40–55; RESP 16; TEMP 36.2–36.6; O2SAT 96–98
[2024-04-23] MEDS: diphenhydrAMINE 25 mg Capsule 50 MG PO (09:00)
[2024-04-23] MEDS: acetaminophen 325 mg Tablet 650 MG PO (09:00)
[2024-04-23] MEDS: IMMUNE GLOBULIN IV (10:23)
[2024-04-23] MEDS: FLEXIBLE CONTAINER IV (10:23)
== END 2024-04-23 23:59 | disposition home or self-care (01) ==
LOC: ONCMED 07:41
PROVIDERS: PCP Family Medicine; Visit Provider Nurse Practitioner Family
DX: G61.81 Chronic inflammatory demyelinating polyneuritis (principal); S52.552A Other extraarticular fracture of lower end of left radius, initial encounter for closed fracture
CPT/HCPCS: 96365; 96366; 96367; J1459; J2919; J7050

== ENCOUNTER 2024-04-30 11:18 | Oncology outpatient (recurring) (ONCR) | payer OTHER, SELFPAY ==
--- NOTE | 2024-04-30 11:45 | MRR_ITS ---
PROCEDURE INFORMATION: Exam: MR Left Upper Extremity Joint Without Contrast; Wrist Exam date and time: 04/30/2024 12:08 PM Age: 68 years old Clinical indication: Patient HX: Left wrist fracture 02/19/24, continued pain; Additional info: Wrist pain TECHNIQUE: Imaging protocol: Magnetic resonance imaging of the left upper extremity without contrast. Exam focused on the wrist. COMPARISON: CR XR wrist LT min 3V* [id number] 03/22/2024 3:27 PM FINDINGS: Bones/joints: There is a subacute avulsion fracture of the dorsum of the triquetrum. There is bony edema in the dorsal triquetral bone and in the small avulsion fracture fragment. No dorsal ligament tear. There is mild bony edema in the dorsal aspect of the trapezium, scaphoid and lunate compatible with reactive changes to ligament sprain. There are moderate degenerative changes of the 1st carpometacarpal joint with marginal osteophytes and joint space narrowing. Incidental intraosseous cyst in the lunate. There is mild bony edema in the dorsal radial styloid process compatible with sprain of the radioscaphoid ligament. The small avulsion fracture fragment at the triquetrum is difficult to appreciate on most of the images due to motion artifact but best seen on series 901 image 5 and series 1001, image 6. Scapholunate ligament: Unremarkable. No tear. Lunotriquetral ligament: Unremarkable. No tear. Other ligaments: There is thickening and edema of the extensor retinaculum dorsal to the carpal bones and thickening and edema of the dorsal intercarpal ligament compatible with sprain best seen on series 1001, image 5. Triangular fibrocartilage complex: Unremarkable. No tear. Flexor compartment tendons: Unremarkable. No tear. Extensor compartment tendons: Unremarkable. No tear. Soft tissues: There is mild edema in the subcutaneous fat dorsal wrist compatible with reactive changes. MR/MR wrist LT wo con* [id number] IMPRESSION: 1. There is a subacute avulsion fracture of the dorsum of the triquetrum. 2. Thickening and edema of multiple dorsal ligaments of the wrist compatible with recent sprain but no ligament tear. Reactive bony edema of the dorsal aspect of multiple carpal bones and dorsal radial styloid process also compatible with recent ligament sprain. 3. No complete ligament tear. No additional bony fracture.
== END 2024-05-12 23:59 | disposition home or self-care (01) ==
PROVIDERS: PCP Family Medicine; Visit Provider Nurse Practitioner Family
DX: S62.112A Displaced fracture of triquetrum [cuneiform] bone, left wrist, initial encounter for closed fracture; X58.XXXA Exposure to other specified factors, initial encounter
CPT/HCPCS: 73221

== ENCOUNTER 2024-05-28 08:24 | Oncology outpatient (recurring) (ONCR) | payer OTHER, SELFPAY ==
[2024-05-28] VITALS (10 sets, daily range): BP systolic 112–125; BP diastolic 66–76; PULSE 18–55; RESP 16–52; TEMP 35.8–36.4; O2SAT 94–98
[2024-05-28 08:58] LABS: Basophils # 0.1 10^3/uL (0.0-0.1); Basophils % 0.8 %; Eosinophils # 0.4 10^3/uL (0.0-0.8); Eosinophils % 4.3 %; Hematocrit 46.4 % (37-53); Lymphocytes # 1.9 10^3/uL (0.8-4.8); Lymphocytes % 19.7 %; Mean Corpuscular HGB Conc 32.5 g/dL (30-55); Mean Corpuscular Volume 92.2 fl (82-101); Mean Platelet Volume 10.9 fL (7.4-10.4); Monocytes # 0.5 10^3/uL (0.2-0.9); Monocytes % 5.5 %; Neutrophils % 69.3 %; Nucleated Red Blood Cells % 0 %; Platelet Count 232 10^3/cmm (157-399); Red Blood Count 5.03 10^6/uL (3.85-5.65); Red Cell Distribution Width 13.5 % (12.1-15.1); White Blood Count 9.68 10^3/uL (3.29-11.43)
[2024-05-28] MEDS: acetaminophen 325 mg Tablet 650 MG PO (09:25)
[2024-05-28] MEDS: diphenhydrAMINE 25 mg Capsule 50 MG PO (09:25)
[2024-05-28 09:31] LABS: Alanine Aminotransferase 16 U/L (0-41); Albumin Level 3.7 g/dL (3.5-5.2); Alkaline Phosphatase 56 U/L (40-130); Anion Gap 14.2 (5-19); Aspartate Amino Transferase 18 U/L (0-40); Blood Urea Nitrogen 25 mg/dL (8-23); Carbon Dioxide 24 mmol/L (22-29); Chloride 104 mmol/L (98-107); Creatinine Clr Calc Pharmacy 67.8679; Free T4 Free Thyroxine 1.31 ng/dL (0.82-1.77); Globulin 3.2 g/dL (1.3-4.6); Glomerular Filtration Rate 59.9 mL/min (90-130); Glucose 128 mg/dL (65-115); Osmolality Calculated 292 mOsm/kg (285-295); Potassium 4.2 mmol/L (3.5-5.1); Sodium 138 mmol/L (136-145); Thyroid Stimulating Hormone 3.22 uIU/mL (0.27-4.20); Total Bilirubin 0.5 mg/dL (0.15-1.2); Total Protein 6.9 g/dL (6.6-8.7)
[2024-05-28 10:15] LABS: 25 Hydroxy Vitamin D 46 ng/mL (30-100)
[2024-05-28] MEDS: FLEXIBLE CONTAINER IV (10:25)
[2024-05-28] MEDS: IMMUNE GLOBULIN IV (10:25)
== END 2024-05-28 23:59 | disposition home or self-care (01) ==
LOC: ONCMED 08:25
PROVIDERS: Internal Medicine; Specialist; PCP Family Medicine; Visit Provider Nurse Practitioner Family
DX: Z79.899 Other long term (current) drug therapy (principal); E89.0 Postprocedural hypothyroidism; M81.0 Age-related osteoporosis without current pathological fracture; G61.81 Chronic inflammatory demyelinating polyneuritis
CPT/HCPCS: 80053; 82306; 84439; 84443; 85025; 96365; 96366; 96375; J1459; J2919; J7050

== ENCOUNTER → 2024-05-29 08:50 | Outpatient (BNVA) | payer OTHER, SELFPAY | PROVIDERS: PCP Family Medicine; Visit Provider Orthopaedic Surgery | DX: M25.532 Pain in left wrist (principal) | CPT/HCPCS: 73110; 99213 ==

== ENCOUNTER → 2024-06-11 09:45 | Outpatient (BNVA) | payer OTHER, SELFPAY | PROVIDERS: PCP Family Medicine; Visit Provider Nurse Practitioner Family | DX: I25.10 Atherosclerotic heart disease of native coronary artery without angina pectoris (principal); F17.200 Nicotine dependence, unspecified, uncomplicated | CPT/HCPCS: 99213 ==

== ENCOUNTER 2024-06-12 06:00 | Outpatient (RCR) | payer OTHER, SELFPAY | END 2024-07-12 23:59 | disposition home or self-care (01) | LOC: TPT 06:00 | PROVIDERS: PCP Family Medicine; Visit Provider Orthopaedic Surgery | DX: S62.92XD Unspecified fracture of left hand, subsequent encounter for fracture with routine healing (principal); X58.XXXD Exposure to other specified factors, subsequent encounter | CPT/HCPCS: 97162 ==

== ENCOUNTER → 2024-06-13 08:59 | Outpatient (BNVA) | payer OTHER, SELFPAY | PROVIDERS: PCP Family Medicine; Visit Provider Internal Medicine | DX: E89.0 Postprocedural hypothyroidism (principal); M81.0 Age-related osteoporosis without current pathological fracture; Z79.890 Hormone replacement therapy | CPT/HCPCS: 99214 ==

== ENCOUNTER 2024-06-19 08:30 | Oncology outpatient (recurring) (ONCR) | payer OTHER, SELFPAY ==
[2024-06-19] VITALS (10 sets, daily range): BP systolic 101–116; BP diastolic 66–81; PULSE 46–53; RESP 16; TEMP 35.6–36.4; O2SAT 47–98
[2024-06-19] MEDS: diphenhydrAMINE 25 mg Capsule 50 MG PO (08:45)
[2024-06-19] MEDS: acetaminophen 325 mg Tablet 650 MG PO (08:46)
[2024-06-19] MEDS: [UNRECOGNIZED DRUG - OTHER] IV (10:12)
[2024-06-19] MEDS: IMMUNE GLOBULIN IV (10:12)
[2024-06-19] MEDS: denosumab 60 mg SDV SUBCUT (11:43)
== END 2024-06-19 23:59 | disposition home or self-care (01) ==
PROVIDERS: PCP Family Medicine; Visit Provider Nurse Practitioner Family
DX: G61.81 Chronic inflammatory demyelinating polyneuritis (principal); Z53.9 Procedure and treatment not carried out, unspecified reason; Z79.899 Other long term (current) drug therapy
CPT/HCPCS: 96365; 96366; 96367; 96372; J0897; J1459; J2919; J7050

== ENCOUNTER 2024-07-02 10:04 | Emergency (ER) | payer OTHER, SELFPAY ==
--- NOTE | 2024-07-02 10:27 | XR_ITS ---
WS: [id number] Exam: XR chest 1V portable [id number] Date/Time of Exam: 07/02/2024 10:28 AM Reason For Exam: cough, wheezing No priors. Lungs are fully expanded and clear. Normal cardiomediastinal silhouette. No pleural effusions. Region al bony elements are unremarkable. XR/XR chest 1V portable [id number] IMPRESSION: 1. No acute cardiopulmonary finding.
[2024-07-02 10:29] VITALS: BP 130/83; PULSE 53; RESP 20; TEMP 36.9; O2SAT 96
--- NOTE | 2024-07-02 10:35 | W.ED.URI ---
HPI - URI/Sore Throat General: Chief Complaint: Upper Respiratory Infection Stated Complaint: Cold,cough, wheezing Time Seen by Provider: 07/02/24 10:28 Source: patient Mode of arrival: ambulatory Limitations: no limitations History of Present Illness: Patient is a nice 68-year-old male presents to ED today with a complaint of cough and chest congestion. He states he has had a nonproductive cough over the past 2 days or so. He does state his 12-year-old son/grandson recently moved in with him and does attend school and feels like maybe he contracted something from him. He feels wheezy. He is an everyday smoker. He states he has been told in the past he probably has COPD. He does not take any medications for this. He is having some nasal congestion/sinus pressure. He has not had any fevers. Denies significant shortness of breath or difficulty breathing. No chest pain. His vitals are stable upon arrival. Denies recent weight gain or worsening edema. States he took a home COVID test which was negative. MD elicited complaint: nasal congestion, sinus pain and other (cough) Onset (ago): day(s) Consistency: constant Severity: moderate Description of mucous: clear Able to tolerate fluids by mouth: Yes Exacerbating factors: nothing Relieving factors: nothing Associated symptoms: Deny abdominal pain, chills, chest pain, fever(s) or headache(s) Treatments prior to arrival: none Related Data Home Medications Medication Instructions Recorded Confirmed omeprazole 20 mg capsule,delayed 20 mg PO DAILY 06/07/22 07/02/24 release Previous Rx's Medication Instructions Recorded diphenhydramine HCl 25 mg capsule 25 mg PO ONCE allergy symptoms #90 02/03/24 (Allergy (diphenhydramine)) caps aspirin 81 mg tablet,delayed 81 mg PO DAILY #90 tabs 02/28/24 release atorvastatin 40 mg tablet 80 mg (2 x 40 mg) PO DAILY #180 02/28/24 tabs clopidogrel 75 mg tablet (Plavix) 75 mg PO DAILY #90 tabs 02/28/24 left cockup splint #1 ea 02/28/24 right cockup splint #1 ea 02/28/24 cholecalciferol (vitamin D3) 100 100 mcg PO DAILY #30 tabs 02/29/24 mcg (4,000 unit) tablet gabapentin 400 mg capsule 400 mg PO QID #360 caps 03/01/24 topiramate 50 mg tablet 25 mg (1/2 x 50 mg) PO BID #180 03/01/24 tabs furosemide 20 mg tablet (Lasix) 20 mg PO DAILY #90 tabs 06/11/24 levothyroxine 125 mcg tablet 125 mcg PO DAILY 30 days #30 tabs 06/13/24 albuterol sulfate 90 mcg/actuation 2 inh inhalation Q4H PRN shortness 07/02/24 aerosol inhaler of breath or wheezing #6.7 grams doxycycline monohydrate 100 mg 100 mg PO Q12H 10 days #20 caps 07/02/24 capsule prednisone 10 mg tablet 10 mg PO DAILY 6 days #20 tabs 07/02/24 Allergies Allergy/AdvReac Type Severity Reaction Status Date / Time prochlorperazine Allergy Severe stop Verified 07/02/24 10:38 [From Compazine] breathing tramadol AdvReac INTERACTION Verified 07/02/24 10:38 WITH HIS CURRENT MEDICATION Review of Systems Const: Denies: fever(s), chills, body aches, fatigue or malaise Card: Denies: chest pain, palpitations, irregular heart rhythm or swelling of feet/ankles Resp: Reports: non-productive cough, wheezing and chest congestion; Denies: pain on inspiration, change in phlegm color or hemoptysis GI: Denies: abdominal pain Musc: Denies: neck pain, back pain, extremity pain, joint pain or joint swelling Skin/Breast: Denies: rash Neuro: Denies: headache(s), numbness in extremities, weakness in extremities, sensory changes or dizziness PFS ED PFSH: Medical History Peripheral neuropathy Degenerative joint disease of spine History of Graves' disease Microhematuria History of prostate cancer Hypothyroidism following radioiodine therapy Depression Anxiety Obstructive sleep apnea Osteoarthritis Osteoporosis Hypogonadism Bladder incontinence Impotence Coronary artery disease Bradycardia Surgical History History of penile implant History of implantation of artificial sphincter (2015) History of radical prostatectomy (2014) S/P left rotator cuff repair History of coronary artery stent placement (2019) History of right inguinal hernia repair Family History Mother Brain aneurysm Diabetes CAD (coronary artery disease) Stroke Father Hodgkins disease Grandmother Stroke Other Cancer Chronic kidney disease (CKD) Hyperlipidemia Hypertension Denies family history of Clotting disorder Dementia Psychiatric illness Suicide Anesthesia complication Bleeding disorder Lung disease Social History Smoking and tobacco/nicotine status: never used tobacco/nicotine Second hand smoke exposure: Yes Alcohol intake: current Alcohol intake frequency: holidays/special occasions only Marital status: Current occupational status: disabled Physical Exam Const: COMMON NORMALS: no acute distress, patient oriented x3, no limitations, alert and well nourished GENERAL APPEARANCE: cooperative NUTRITIONAL APPEARANCE: overweight ORIENTATION/CONSCIOUSNESS: Yes awake, Yes oriented to person, Yes oriented to place and Yes oriented to time HENMT: COMMON NORMALS: Normal external nose present FACE & SINUS: normal facial exam NOSE: Normal external nose present THROAT: posterior oropharynx normal Eye: GENERAL EYE: appearance normal, both eyes and all related structures Neck/C-Spine: COMMON NORMALS: no lymphadenopathy Chest: COMMONS NORMALS: normal inspection of the chest and normal palpation of entire chest wall Resp: COMMON NORMALS: normal respiratory effort AUSCULTATION: no crackles, wheezes and other (course breath sounds throughout ) Cardio: COMMON NORMALS: regular rhythm RATE: bradycardic (chronic per patient ) RHYTHM: regular rhythm Neuro: COMMON NORMALS: patient oriented x3 SENSORIUM/ORIENTATION: Yes alert, Yes oriented to person, Yes oriented to place and Yes oriented to time Course Vital Signs: Vital signs: Vital Signs Temperature 98.4 F 07/02/24 10:29 Pulse Rate 59 L 07/02/24 10:40 Respiratory Rate 18 07/02/24 10:40 Blood Pressure 130/83 07/02/24 10:29 Pulse Oximetry 98 07/02/24 10:40 Oxygen Delivery Me thod Room Air 07/02/24 10:40 MDM - URI/Sore Throat Medical Decision Making Patient clinically appearing in no acute distress. His vital signs are stable. Blood work not obtained as this would be unlikely to change overall management. His CXR is unremarkable. Patient did have coarse lung sounds throughout. He is an everyday smoker. He states he does feel better after DuoNeb. Will treat him for a COPD exacerbation. COVID/flu/RSV PCR swab obtained. Will contact patient with any positive results. Return precautions discussed. Differential Diagnosis Likely upper respiratory infection, viral infection and bronchitis Medical Records I reviewed the patient's medical records. Lab Data Radiology Impressions Chest X-Ray 07/02/24 10:27 IMPRESSION: 1. No acute cardiopulmonary finding. All radiology interpretation(s) finalized by discharge Discharge Plan Discharge Patient Disposition: Home Clinical Impression: COPD exacerbation Condition: Stable Prescriptions: New prednisone 10 mg tablet 10 mg PO DAILY 6 Days Qty: 20 0RF Rx Instructions: Take 5 tabs on day 1-2, 4 tabs on day 3, 3 tabs on day 4, 2 tabs on day 5, and 1 tab on day 6 doxycycline monohydrate 100 mg capsule 100 mg PO Q12H 10 Days Qty: 20 0RF albuterol sulfate 90 mcg/actuation HFA aerosol inhaler 2 inh INHALATION Q4H PRN (Reason: shortness of breath or wheezing) Qty: 6.7 0RF No Action levothyroxine 125 mcg tablet 125 mcg PO DAILY 30 Days Qty: 30 1RF Rx Instructions: take one tablet daily (DME) left cockup splint See Rx Instructions .Route .MEDSUPPLY Qty: 1 0RF Rx Instructions: As directed (DME) right cockup splint See Rx Instructions .Route .MEDSUPPLY Qty: 1 0RF Rx Instructions: As directed furosemide [Lasix] 20 mg tablet 20 mg PO DAILY Qty: 90 3RF Rx Instructions: 40 in the morning and 20mg at 2PM for 3 days, then keep at 40mg daily omeprazole 20 mg capsule,delayed release(DR/EC) 20 mg PO DAILY diphenhydramine HCl [Allergy (diphenhydramine)] 25 mg capsule 25 mg PO ONCE Qty: 90 3RF Rx Instructions: take at bedtime for reaction to IVIG treatments aspirin 81 mg tablet,delayed release (DR/EC) 81 mg PO DAILY Qty: 90 3RF atorvastatin 40 mg tablet 80 mg PO DAILY Qty: 180 3RF clopidogrel [Plavix] 75 mg tablet 75 mg PO DAILY Qty: 90 3RF cholecalciferol (vitamin D3) 100 mcg (4,000 unit) tablet 100 mcg PO DAILY Qty: 30 0RF topiramate 50 mg tablet 25 mg PO BID Qty: 180 3RF gabapentin 400 mg capsule 400 mg PO QID Qty: 360 3RF Discharge Orders: Discharge ED (Routine); Ordered 07/02/24 Ordered By: Roselia Phelan Referrals: Calli Marcelo MD [Primary Care Provider] - Patient Instructions: COPD (Chronic Obstructive Pulmonary Disease) (DC) Activity Restrictions/Additional Instructions: As we discussed, your chest x-ray did not show evidence of pneumonia. You will be treated for a COPD exacerbation. You need to follow-up with your primary care provider later this week for reevaluation. You need to return to the emergency department for onset of chest pain, shortness of breath, difficulty breathing, fevers, generally feeling worse or unwell, or any other concerns you may have. Coding Level of Care Code ED Mine Development Engineer for Larry Herrmann
[2024-07-02 10:40] VITALS: PULSE 59; RESP 18; O2SAT 98
[2024-07-02] MEDS: ipratropium-albuterol 3 mL Neb INHALATION (10:45)
--- NOTE | 2024-07-02 10:46 | PC.PHAR ---
[facility] has [facility], [facility]ed them at 10:45am
[2024-07-02] MEDS: methylPREDNISolone sod succ 125 mg/2 mL INJ IM (11:22)
[2024-07-02 12:09] LABS: Covid PCR NEGATIVE (Negative); Influenza A NEGATIVE (Negative); Influenza B NEGATIVE (Negative); Respiratory Syncytial Virus Ce NEGATIVE (Negative)
== END 2024-07-02 12:15 | disposition home or self-care (01) ==
PROVIDERS: Emergency Provider Physician Assistant; PCP Family Medicine
DX: J44.1 Chronic obstructive pulmonary disease with (acute) exacerbation (principal)
CPT/HCPCS: 0241U; 71045; 94640; 96372; 99284; J2919

== ENCOUNTER 2024-07-02 13:16 | Oncology outpatient (recurring) (ONCR) | payer OTHER, SELFPAY ==
--- NOTE | 2024-07-02 13:30 | XR_ITS ---
WS: [id number] DEXA (DUAL ENERGY X-RAY ABSORPTIOMETRY) Bone mineral density was performed using a [email or web address] machine. HISTORY: Osteoporosis COMPARISON: 09/23/2021 Lumbar spine BMD (L1-L4): 1.093 g/cm2 T score: -1.1 Z score: -1.3 Total hip BMD: Left: 0.862 g/cm2. T score: -1.7 Z score: -1.4 Right: 0.842 g/cm2. T score: -1.8 Z score: -1.5 10 year probability of a major osteoporotic fracture is 15.9%. Compared to the prior study from 09/23/2021. Lumbar spine bone mineral density is unchanged. Bilateral hips bone mineral density has increased by 1.2%. XR/XR DEXA axial skeleton* [id number] IMPRESSION: OSTEOPENIA based upon the WHO classification for females. No significant change in bone mineral density within the lumbar spine or hips s lorena the prior study.
== END 2024-07-12 23:59 | disposition home or self-care (01) ==
LOC: RAD 07-09 10:31 → ONCMED 07-09 10:38
PROVIDERS: PCP Family Medicine; Visit Provider Internal Medicine
DX: G61.81 Chronic inflammatory demyelinating polyneuritis (principal); S52.552A Other extraarticular fracture of lower end of left radius, initial encounter for closed fracture; M81.0 Age-related osteoporosis without current pathological fracture
CPT/HCPCS: 77080

== ENCOUNTER 2024-09-26 20:00 | Outpatient (CLI) | payer OTHER, SELFPAY | END 2024-09-26 20:01 | disposition home or self-care (01) | LOC: SLEEP 23:37 | PROVIDERS: PCP Family Medicine; Visit Provider Family Medicine | DX: G47.33 Obstructive sleep apnea (adult) (pediatric) (principal) | CPT/HCPCS: 95811 ==

== ENCOUNTER 2024-10-04 15:55 | Emergency (ER) | payer OTHER, SELFPAY ==
[2024-10-04] VITALS (8 sets, daily range): BP systolic 91–140; BP diastolic 61–80; PULSE 46–81; RESP 18; TEMP 36.6; O2SAT 91–100
[2024-10-04 19:20] LABS: Basophils # 0.1 10^3/uL (0.0-0.1); Basophils % 1.1 %; Eosinophils # 0.4 10^3/uL (0.0-0.8); Eosinophils % 4.8 %; Hematocrit 45.7 % (37-53); Lymphocytes # 2.5 10^3/uL (0.8-4.8); Lymphocytes % 27.9 %; Mean Corpuscular HGB Conc 31.9 g/dL (30-55); Mean Corpuscular Hemoglobin 29.9 pg (27-33); Mean Corpuscular Volume 93.6 fl (82-101); Mean Platelet Volume 10.6 fL (7.4-10.4); Monocytes # 0.8 10^3/uL (0.2-0.9); Monocytes % 8.6 %; Neutrophils # 5.16 10^3/uL (1.8-7.7); Neutrophils % 57.3 %; Nucleated Red Blood Cells % 0 %; Platelet Count 250 10^3/cmm (157-399); Red Blood Count 4.88 10^6/uL (3.85-5.65); Red Cell Distribution Width 13.7 % (12.1-15.1)
[2024-10-04 19:41] LABS: Erythrocyte Sedimentation Rate 8 mm/hr (0-10)
[2024-10-04 19:54] LABS: Alanine Aminotransferase 15 U/L (0-41); Albumin Level 3.7 g/dL (3.5-5.2); Alkaline Phosphatase 73 U/L (40-130); Aspartate Amino Transferase 18 U/L (0-40); Blood Urea Nitrogen 29 mg/dL (8-23); C Reactive Protein 13.4 mg/L (0.0-4.9); Calcium 9.1 mg/dL (8.5-10.5); Carbon Dioxide 23 mmol/L (22-29); Chloride 106 mmol/L (98-107); Creatinine Clr Calc Pharmacy 54.2355; Globulin 2.9 g/dL (1.3-4.6); Glomerular Filtration Rate 46.3 mL/min (90-130); Glucose 109 mg/dL (65-115); NT Pro B Type Natriuretic Pept 397 pg/mL (0-125); Osmolality Calculated 296 mOsm/kg (285-295); Sodium 140 mmol/L (136-145); Total Bilirubin 0.3 mg/dL (0.15-1.2); Total Protein 6.6 g/dL (6.6-8.7)
[2024-10-04 20:05] LABS: Creatine Phosphokinase 384 U/L (39-308)
--- NOTE | 2024-10-04 21:03 | ED_ITS ---
HPI - Recheck/Abnormal Lab/Rx 2 General: Chief Complaint: Recheck/Abnormal Lab/Rx Stated Complaint: abnormal labs Time Seen by Provider: 10/04/24 18:30 History of Present Illness: 68-year-old man with a history of periph eral neuropathy, coronary artery disease, obstructive sleep apnea, chronic lower extremity/venous stasis with venous stasis dermatitis over the last few months who presents to the emergency room with concern for abnormal lab work. Apparently a CPK was done at his primary's office and they told him to come to the emergency room. he has homemade dressings to his lower extremities bilaterally. He does have some pain. He says however the wounds are looking better than they had in the past. He is follow-up with Dr. Washington for such things in the past. He feels like he needs to get into wound clinic. We discussed that Dr. Washington can manage this types of wounds. No chest pain. No orthopnea. Related Data Home Medications Medication Instructions Recorded Confirmed omeprazole 20 mg capsule,delayed 20 mg PO DAILY 06/07/22 07/02/24 release Previous Rx's Medication Instructions Recorded diphenhydramine HCl 25 mg capsule 25 mg PO ONCE allergy symptoms #90 02/03/24 (Allergy (diphenhydramine)) caps aspirin 81 mg tablet,delayed 81 mg PO DAILY #90 tabs 02/28/24 release atorvastatin 40 mg tablet 80 mg (2 x 40 mg) PO DAILY #180 02/28/24 tabs clopidogrel 75 mg tablet (Plavix) 75 mg PO DAILY #90 tabs 02/28/24 left cockup splint #1 ea 02/28/24 right cockup splint #1 ea 02/28/24 cholecalciferol (vitamin D3) 100 100 mcg PO DAILY #30 tabs 02/29/24 mcg (4,000 unit) tablet gabapentin 400 mg capsule 400 mg PO QID #360 caps 03/01/24 topiramate 50 mg tablet 25 mg (1/2 x 50 mg) PO BID #180 03/01/24 tabs albuterol sulfate 90 mcg/actuation 2 inh inhalation Q4H PRN shortness 07/02/24 aerosol inhaler of breath or wheezing #6.7 grams levothyroxine 125 mcg tablet 125 mcg PO DAILY 30 days #30 tabs 08/03/24 furosemide 40 mg tablet 40 mg PO DAILY #90 tabs 09/19/24 Allergies Allergy/AdvReac Type Severity Reaction Status Date / Time prochlorperazine Allergy Severe stop Verified 10/04/24 17:10 [From Compazine] breathing tramadol AdvReac INTERACTION Verified 10/04/24 17:10 WITH HIS CURRENT MEDICATION Review of Systems 2 Narrative: Constitutional symptoms: Negative except as documented in HPI. Skin symptoms: Negative except as documented in HPI. Eye symptoms: Negative except as documented in HPI. ENMT symptoms: Negative except as documented in HPI. Respiratory symptoms: Negative except as documented in HPI. Cardiovascular symptoms: Negative except as documented in HPI. Gastrointestinal symptoms: Negative except as documented in HPI. Genitourinary symptoms: Negative except as documented in HPI. Musculoskeletal symptoms: Negative except as documented in HPI. Neurologic symptoms: Negative except as documented in HPI. Psychiatric symptoms: Negative except as documented in HPI. Endocrine symptoms: Negative except as documented in HPI. PFSH ED 2 PFSH: Medical History Peripheral neuropathy Degenerative joint disease of spine History of Graves' disease Microhematuria History of prostate cancer Hypothyroidism following radioiodine therapy Depression Anxiety Obstructive sleep apnea Osteoarthritis Osteoporosis Hypogonadism Bladder incontinence Impotence Coronary artery disease Bradycardia Surgical History History of penile implant History of implantation of artificial sphincter (2015) History of radical prostatectomy (2014) S/P left rotator cuff repair History of coronary artery stent placement (2019) History of right inguinal hernia repair Family History Mother Brain aneurysm Diabetes CAD (coronary artery disease) Stroke Father Hodgkins disease Grandmother Stroke Other Cancer Chronic kidney disease (CKD) Hyperlipidemia Hypertension Denies family history of Clotting disorder Dementia Psychiatric illness Suicide Anesthesia complication Bleeding disorder Lung disease Social History Smoking and tobacco/nicotine status: never used tobacco/nicotine Second hand smoke exposure: Yes Alcohol intake: current Alcohol intake frequency: holidays/special occasions only Marital status: Current occupational status: disabled Physical Exam 2 Narrative: EXAM NARRATIVE: General: Alert, no acute distress. Skin: Warm, dry. Head: Normocephalic, atraumatic. Neck: Supple, trachea midline. Eye: Extraocular movements are intact. Ears, nose, mouth and throat: mucosa moist. Cardiovascular: Regular, Normal peripheral perfusion. Bilateral edema with venous stasis dermatitis and several wounds. He has good granulation tissue and I do not see any signs of active infection at this time. Respiratory: Lungs are clear to auscultation, respirations are non-labored, breath sounds are equal, Symmetrical chest wall expansion. Gastrointestinal: Soft, Nontender, Non distended Musculoskeletal: Normal ROM, no deformity. Neurological: Alert and oriented, No focal neurological deficit observed. Psychiatric: Cooperative, appropriate mood & affect. Course 2 Vital Signs: Vital signs: Vital Signs Temperature 97.9 F 10/04/24 17:03 Pulse Rate 49 L 10/04/24 20:30 Respiratory Rate 18 10/04/24 17:03 Blood Pressure 112/79 10/04/24 20:30 Pulse Oximetry 99 10/04/24 20:30 Oxygen Delivery Me thod Room Air 10/04/24 20:30 MDM - Recheck/Abnormal Lab/Rx Medical Decision Making Lab Review: Laboratory results were reviewed and interpreted by myself the emergency room physician. Patient does have a mild increase in his renal function at 29 1.5. Also has mild elevation in CK. I do not believe he is in rhabdo. He is not having any cardiac symptoms. I reviewed the patient's medical record. Reexamination: Patient remained stable. No increased work of breathing. No altered mental status. No focal motor deficits. Consultation: I spoke Dr. Washington who reviewed images of the patient's legs and will see the patient in clinic tomorrow. Assessment and plan: Venous stasis dermatitis Chronic leg wounds - Discharged home - Discussed plan with patient. Answered any questions. - Evaluation and treatment of this problem were appropriate in the emergency setting. Lab Data 10/04/24 19:09 10/04/24 19:09 Laboratory Results WBC 9.00 10^3/uL (3.29-11.43) 10/04/24 19:09 RBC 4.88 10^6/uL (3.85-5.65) 10/04/24 19:09 Hgb 14.60 g/dL (11.27-16.99) 10/04/24 19:09 Hct 45.7 % (37-53) 10/04/24 19:09 MCV 93.6 fl (82-101) 10/04/24 19:09 MCH 29.9 pg (27-33) 10/04/24 19:09 MCHC 31.9 g/dL (30-55) 10/04/24 19:09 RDW 13.7 % (12.1-15.1) 10/04/24 19:09 Plt Count 250 10^3/cmm (157-399) 10/04/24 19:09 MPV 10.6 fL (7.4-10.4) H 10/04/24 19:09 Neut % (Auto) 57.3 % 10/04/24 19:09 Lymph % (Auto) 27.9 % 10/04/24 19:09 Bracken % (Auto) 8.6 % 10/04/24 19:09 Eos % (Auto) 4.8 % 10/04/24 19:09 Baso % (Auto) 1.1 % 10/04/24 19:09 Neut # (Auto) 5.16 10^3/uL (1.8-7.7) 10/04/24 19:09 Lymph # (Auto) 2.5 10^3/uL (0.8-4.8) 10/04/24 19:09 Bracken # (Auto) 0.8 10^3/uL (0.2-0.9) 10/04/24 19:09 Eos # (Auto) 0.4 10^3/uL (0.0-0.8) 10/04/24 19:09 Baso # (Auto) 0.1 10^3/uL (0.0-0.1) 10/04/24 19:09 Nucleated RBC % (auto) 0 % 10/04/24 19:09 Nucleated RBCs # 0.0 /100WBC 10/04/24 19:09 ESR 8 mm/hr (0-10) 10/04/24 19:09 Sodium 140 mmol/L (136-145) 10/04/24 19:09 Potassium 4.0 mmol/L (3.5-5.1) 10/04/24 19:09 Chloride 106 mmol/L (98-107) 10/04/24 19:09 Carbon Dioxide 23 mmol/L (22-29) 10/04/24 19:09 Anion Gap 15.0 (5-19) 10/04/24 19:09 BUN 29 mg/dL (8-23) H 10/04/24 19:09 Creatinine 1.5 mg/dL (0.7-1.2) H 10/04/24 19:09 GFR Calculation 46.3 mL/min (90-130) L 10/04/24 19:09 Glucose 109 mg/dL (65-115) 10/04/24 19:09 Calculated Osmolality 296 mOsm/kg (285-295) H 10/04/24 19:09 Calcium 9.1 mg/dL (8.5-10.5) 10/04/24 19:09 Total Bilirubin 0.3 mg/dL (0.15-1.2) 10/04/24 19:09 AST 18 U/L (0-40) 10/04/24 19:09 ALT 15 U/L (0-41) 10/04/24 19:09 Alkaline Phosphatase 73 U/L (40-130) 10/04/24 19:09 Creatine Kinase 384 U/L (39-308) H* 10/04/24 19:09 C-Reactive Protein 13.4 mg/L (0.0-4.9) H 10/04/24 19:09 NT-Pro-B Natriuret Pep 397 pg/mL (0-125) H 10/04/24 19:09 Total Protein 6.6 g/dL (6.6-8.7) 10/04/24 19:09 Albumin 3.7 g/dL (3.5-5.2) 10/04/24 19:09 Globulin 2.9 g/dL (1.3-4.6) 10/04/24 19:09 No radiology studies performed this visit Discharge Plan Discharge Patient Disposition: Home Clinical Impression: Venous stasis dermatitis, Chronic wound of extremity Condition: Stable Prescriptions: No Action (DME) left cockup splint See Rx Instructions .Route .MEDSUPPLY Qty: 1 0RF Rx Instructions: As directed (DME) right cockup splint See Rx Instructions .Route .MEDSUPPLY Qty: 1 0RF Rx Instructions: As directed omeprazole 20 mg capsule,delayed release(DR/EC) 20 mg PO DAILY diphenhydramine HCl [Allergy (diphenhydramine)] 25 mg capsule 25 mg PO ONCE Qty: 90 3RF Rx Instructions: take at bedtime for reaction to IVIG treatments aspirin 81 mg tablet,delayed release (DR/EC) 81 mg PO DAILY Qty: 90 3RF atorvastatin 40 mg tablet 80 mg PO DAILY Qty: 180 3RF clopidogrel [Plavix] 75 mg tablet 75 mg PO DAILY Qty: 90 3RF cholecalciferol (vitamin D3) 100 mcg (4,000 unit) tablet 100 mcg PO DAILY Qty: 30 0RF topiramate 50 mg tablet 25 mg PO BID Qty: 180 3RF gabapentin 400 mg capsule 400 mg PO QID Qty: 360 3RF levothyroxine 125 mcg tablet 125 mcg PO DAILY 30 Days Qty: 30 1RF Rx Instructions: take one tablet daily furosemide 40 mg tablet 40 mg PO DAILY Qty: 90 3RF albuterol sulfate 90 mcg/actuation HFA aerosol inhaler 2 inh INHALATION Q4H PRN (Reason: shortness of breath or wheezing) Qty: 6.7 0RF Discharge Orders: Discharge ED (Routine); Ordered 10/04/24 Ordered By: Karina Person Referrals: Benjamin Washington DPM [Physician] - 10/05/24 9:45 am Calli Marcelo MD [Primary Care Provider] - Discharge Diet: Usual diet Discharge Activity: Increase activity as tolerated Patient Instructions: Opioid Safety, Pain Management Activity Restrictions/Additional Instructions: Thank you for choosing [facility] for your healthcare needs today. Please realize this is an emergency room and that we are providing you with a medical screening exam and this may not be complete and all inclusive of all the testing and or work up that you may need to determine your ailment or severity of your illness. You have been screened and evaluated and felt safe for discharge. Health conditions do change or evolve sometimes and as such it is important that you follow up with your Primary Doctor to be re checked, 3-5 days is a general good time frame for follow up. 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
== END 2024-10-04 21:54 | disposition home or self-care (01) ==
PROVIDERS: Emergency Medicine; Emergency Provider Emergency Medicine; PCP Family Medicine
DX: I87.2 Venous insufficiency (chronic) (peripheral) (principal); S81.809A Unspecified open wound, unspecified lower leg, initial encounter; X58.XXXA Exposure to other specified factors, initial encounter; Z79.82 Long term (current) use of aspirin; Z79.02 Long term (current) use of antithrombotics/antiplatelets; I25.10 Atherosclerotic heart disease of native coronary artery without angina pectoris; Z85.46 Personal history of malignant neoplasm of prostate
CPT/HCPCS: 36415; 80053; 82550; 83880; 85025; 85651; 86140; 99283

== ENCOUNTER → 2024-10-05 10:01 | Outpatient (BNVA) | payer OTHER, SELFPAY | PROVIDERS: PCP Family Medicine; Visit Provider Podiatrist Foot & Ankle Surgery | DX: I87.2 Venous insufficiency (chronic) (peripheral) (principal); G62.9 Polyneuropathy, unspecified | CPT/HCPCS: 99213 ==

== ENCOUNTER → 2024-10-12 12:51 | Outpatient (BNVA) | payer OTHER, SELFPAY | PROVIDERS: PCP Family Medicine; Visit Provider Podiatrist Foot & Ankle Surgery | DX: I87.2 Venous insufficiency (chronic) (peripheral) (principal); G62.9 Polyneuropathy, unspecified | CPT/HCPCS: 99213 ==

== ENCOUNTER → 2024-10-25 10:22 | Outpatient (BNVA) | payer OTHER, SELFPAY | PROVIDERS: PCP Family Medicine; Visit Provider Podiatrist Foot & Ankle Surgery | DX: I87.2 Venous insufficiency (chronic) (peripheral) (principal); G62.9 Polyneuropathy, unspecified | CPT/HCPCS: 99213 ==

== ENCOUNTER → 2024-10-30 09:25 | Outpatient (BNVA) | payer OTHER, SELFPAY | PROVIDERS: PCP Family Medicine; Visit Provider Podiatrist Foot & Ankle Surgery | DX: I87.2 Venous insufficiency (chronic) (peripheral) (principal); G62.9 Polyneuropathy, unspecified | CPT/HCPCS: 99213 ==

== ENCOUNTER → 2024-11-08 08:48 | Outpatient (BNVA) | payer OTHER, SELFPAY | PROVIDERS: PCP Family Medicine; Visit Provider Podiatrist Foot & Ankle Surgery | DX: I87.2 Venous insufficiency (chronic) (peripheral) (principal); G62.9 Polyneuropathy, unspecified | CPT/HCPCS: 99213 ==

== ENCOUNTER → 2024-11-20 10:28 | Outpatient (BNVA) | payer OTHER, SELFPAY | PROVIDERS: PCP Family Medicine; Visit Provider Podiatrist Foot & Ankle Surgery | DX: I87.2 Venous insufficiency (chronic) (peripheral) (principal); G62.9 Polyneuropathy, unspecified | CPT/HCPCS: 99213 ==

== ENCOUNTER → 2024-11-26 10:45 | Outpatient (BNVA) | payer OTHER, SELFPAY | PROVIDERS: PCP Family Medicine; Visit Provider Podiatrist Foot & Ankle Surgery | DX: I87.2 Venous insufficiency (chronic) (peripheral) (principal); G62.9 Polyneuropathy, unspecified | CPT/HCPCS: 99213 ==

== ENCOUNTER → 2024-12-11 08:34 | Outpatient (BNVA) | payer OTHER, SELFPAY | PROVIDERS: PCP Family Medicine; Visit Provider Podiatrist Foot & Ankle Surgery | DX: I87.2 Venous insufficiency (chronic) (peripheral) (principal); G62.9 Polyneuropathy, unspecified; I83.028 Varicose veins of left lower extremity with ulcer other part of lower leg; L97.521 Non-pressure chronic ulcer of other part of left foot limited to breakdown of skin; I83.018 Varicose veins of right lower extremity with ulcer other part of lower leg; L97.511 Non-pressure chronic ulcer of other part of right foot limited to breakdown of skin | CPT/HCPCS: 99213 ==

== ENCOUNTER → 2024-12-20 08:36 | Outpatient (BNVA) | payer OTHER, SELFPAY | PROVIDERS: PCP Family Medicine; Visit Provider Thoracic Surgery (Cardiothoracic Vascular Surgery) | DX: I96 Gangrene, not elsewhere classified (principal); I87.2 Venous insufficiency (chronic) (peripheral); L97.811 Non-pressure chronic ulcer of other part of right lower leg limited to breakdown of skin; L97.821 Non-pressure chronic ulcer of other part of left lower leg limited to breakdown of skin | CPT/HCPCS: 97597; 97598; 99213; A6021 ==

== ENCOUNTER → 2025-01-03 09:24 | Outpatient (BNVA) | payer OTHER, SELFPAY | PROVIDERS: PCP Family Medicine; Visit Provider Thoracic Surgery (Cardiothoracic Vascular Surgery) | DX: I96 Gangrene, not elsewhere classified (principal); I87.2 Venous insufficiency (chronic) (peripheral); L97.811 Non-pressure chronic ulcer of other part of right lower leg limited to breakdown of skin; L97.821 Non-pressure chronic ulcer of other part of left lower leg limited to breakdown of skin | CPT/HCPCS: 97597; 97598 ==

== ENCOUNTER → 2025-01-08 08:14 | Outpatient (BNVA) | payer OTHER, SELFPAY | PROVIDERS: PCP Family Medicine; Visit Provider Thoracic Surgery (Cardiothoracic Vascular Surgery) | DX: E11.52 Type 2 diabetes mellitus with diabetic peripheral angiopathy with gangrene (principal); E11.622 Type 2 diabetes mellitus with other skin ulcer; L97.811 Non-pressure chronic ulcer of other part of right lower leg limited to breakdown of skin; L97.821 Non-pressure chronic ulcer of other part of left lower leg limited to breakdown of skin | CPT/HCPCS: 97597; A6021; A6253 ==

== ENCOUNTER → 2025-01-10 08:18 | Outpatient (BNVA) | payer OTHER, SELFPAY | PROVIDERS: PCP Family Medicine; Visit Provider Thoracic Surgery (Cardiothoracic Vascular Surgery) | DX: I96 Gangrene, not elsewhere classified (principal); I87.2 Venous insufficiency (chronic) (peripheral); L97.811 Non-pressure chronic ulcer of other part of right lower leg limited to breakdown of skin; L97.821 Non-pressure chronic ulcer of other part of left lower leg limited to breakdown of skin | CPT/HCPCS: A6021; A6253 ==

== ENCOUNTER → 2025-01-15 09:37 | Outpatient (BNVA) | payer OTHER, SELFPAY | PROVIDERS: PCP Family Medicine; Visit Provider Thoracic Surgery (Cardiothoracic Vascular Surgery) | DX: I87.2 Venous insufficiency (chronic) (peripheral) (principal); L97.811 Non-pressure chronic ulcer of other part of right lower leg limited to breakdown of skin; L97.821 Non-pressure chronic ulcer of other part of left lower leg limited to breakdown of skin | CPT/HCPCS: 29581 ==

== ENCOUNTER 2025-01-22 08:25 | Oncology outpatient (recurring) (ONCR) | payer OTHER, SELFPAY ==
[2025-01-22] MEDS: denosumab 60 mg SDV SUBCUT (08:43)
[2025-01-22 08:45] VITALS: BP 118/68; PULSE 64; RESP 16; TEMP 36.1; O2SAT 96
[2025-01-22 09:51] LABS: Alanine Aminotransferase 21 U/L (0-41); Albumin Level 4.1 g/dL (3.5-5.2); Alkaline Phosphatase 88 U/L (40-130); Aspartate Amino Transferase 22 U/L (0-40); Blood Urea Nitrogen 32 mg/dL (8-23); Calcium 9.4 mg/dL (8.5-10.5); Carbon Dioxide 22 mmol/L (22-29); Chloride 104 mmol/L (98-107); Globulin 3.3 g/dL (1.3-4.6); Glucose 94 mg/dL (65-115); Osmolality Calculated 297 mOsm/kg (285-295); Sodium 140 mmol/L (136-145); Total Bilirubin 0.3 mg/dL (0.15-1.2); Total Protein 7.4 g/dL (6.6-8.7)
[2025-01-22 10:07] LABS: 25 Hydroxy Vitamin D 31 ng/mL (30-100)
== END 2025-02-09 23:59 | disposition home or self-care (01) ==
PROVIDERS: PCP Family Medicine; Visit Provider Internal Medicine
DX: M81.0 Age-related osteoporosis without current pathological fracture (principal); E89.0 Postprocedural hypothyroidism; Z09 Encounter for follow-up examination after completed treatment for conditions other than malignant neoplasm; Z87.2 Personal history of diseases of the skin and subcutaneous tissue
CPT/HCPCS: 36415; 80053; 82306; 96372; 99212; J0897; J9999

== ENCOUNTER → 2025-02-25 14:48 | Outpatient (BNVA) | payer OTHER, SELFPAY | PROVIDERS: PCP Family Medicine; Visit Provider Thoracic Surgery (Cardiothoracic Vascular Surgery) | DX: I96 Gangrene, not elsewhere classified (principal); I89.0 Lymphedema, not elsewhere classified; L97.811 Non-pressure chronic ulcer of other part of right lower leg limited to breakdown of skin; L97.821 Non-pressure chronic ulcer of other part of left lower leg limited to breakdown of skin | CPT/HCPCS: 29581; 97597; 97598; A6021; A6252 ==

== ENCOUNTER → 2025-02-27 09:53 | Outpatient (BNVA) | payer OTHER, SELFPAY | PROVIDERS: PCP Family Medicine; Visit Provider Thoracic Surgery (Cardiothoracic Vascular Surgery) | DX: I87.313 Chronic venous hypertension (idiopathic) with ulcer of bilateral lower extremity (principal) | CPT/HCPCS: A6021; A6252 ==

== ENCOUNTER → 2025-03-06 09:34 | Outpatient (BNVA) | payer OTHER, SELFPAY | PROVIDERS: PCP Family Medicine; Visit Provider Thoracic Surgery (Cardiothoracic Vascular Surgery) | DX: I96 Gangrene, not elsewhere classified (principal); I89.0 Lymphedema, not elsewhere classified; L97.821 Non-pressure chronic ulcer of other part of left lower leg limited to breakdown of skin; Z09 Encounter for follow-up examination after completed treatment for conditions other than malignant neoplasm | CPT/HCPCS: 97597; A6021; A6251 ==

== ENCOUNTER 2025-03-13 15:16 | Outpatient (CLI) | payer OTHER, SELFPAY ==
[2025-03-13 16:23] LABS: Anion Gap 19.5 (5-19); Blood Urea Nitrogen 26 mg/dL (8-23); Calcium 9.6 mg/dL (8.5-10.5); Carbon Dioxide 23 mmol/L (22-29); Chloride 104 mmol/L (98-107); Glucose 100 mg/dL (65-115); Osmolality Calculated 299 mOsm/kg (285-295); Potassium 4.5 mmol/L (3.5-5.1); Sodium 142 mmol/L (136-145); Thyroid Stimulating Hormone 15.27 uIU/mL (0.27-4.20)
[2025-03-13 17:10] LABS: Free T4 Free Thyroxine 1.07 ng/dL (0.82-1.77)
== END 2025-03-13 15:17 | disposition home or self-care (01) ==
PROVIDERS: PCP Family Medicine; Visit Provider Internal Medicine
DX: E89.0 Postprocedural hypothyroidism (principal); N18.32 Chronic kidney disease, stage 3b; E78.00 Pure hypercholesterolemia, unspecified
CPT/HCPCS: 36415; 80048; 82306; 84439; 84443; 97597

== ENCOUNTER → 2025-03-19 08:54 | Outpatient (BNVA) | payer OTHER, SELFPAY | PROVIDERS: PCP Family Medicine; Visit Provider Internal Medicine | DX: E89.0 Postprocedural hypothyroidism (principal); M81.0 Age-related osteoporosis without current pathological fracture | CPT/HCPCS: 99214 ==

== ENCOUNTER → 2025-03-20 10:22 | Outpatient (BNVA) | payer OTHER, SELFPAY | PROVIDERS: PCP Family Medicine; Visit Provider Thoracic Surgery (Cardiothoracic Vascular Surgery) | DX: Z09 Encounter for follow-up examination after completed treatment for conditions other than malignant neoplasm (principal); Z87.2 Personal history of diseases of the skin and subcutaneous tissue | CPT/HCPCS: 29581 ==

== ENCOUNTER → 2025-03-27 09:15 | Outpatient (BNVA) | payer OTHER, SELFPAY | PROVIDERS: PCP Family Medicine; Visit Provider Thoracic Surgery (Cardiothoracic Vascular Surgery) | DX: Z09 Encounter for follow-up examination after completed treatment for conditions other than malignant neoplasm (principal); Z87.2 Personal history of diseases of the skin and subcutaneous tissue | CPT/HCPCS: 99212 ==

== ENCOUNTER → 2025-05-08 13:11 | Outpatient (BNVA) | payer OTHER, SELFPAY | PROVIDERS: PCP Family Medicine; Visit Provider Thoracic Surgery (Cardiothoracic Vascular Surgery) | DX: I96 Gangrene, not elsewhere classified (principal); I87.2 Venous insufficiency (chronic) (peripheral); L97.821 Non-pressure chronic ulcer of other part of left lower leg limited to breakdown of skin; L97.811 Non-pressure chronic ulcer of other part of right lower leg limited to breakdown of skin | CPT/HCPCS: 97597; 97598; A6252 ==

== ENCOUNTER → 2025-05-10 09:32 | Outpatient (BNVA) | payer OTHER, SELFPAY | PROVIDERS: PCP Family Medicine; Visit Provider Thoracic Surgery (Cardiothoracic Vascular Surgery) | DX: I96 Gangrene, not elsewhere classified (principal); I87.2 Venous insufficiency (chronic) (peripheral); L97.821 Non-pressure chronic ulcer of other part of left lower leg limited to breakdown of skin; L97.811 Non-pressure chronic ulcer of other part of right lower leg limited to breakdown of skin | CPT/HCPCS: 29581 ==

== ENCOUNTER 2025-05-14 10:12 | Outpatient (CLI) | payer OTHER, SELFPAY ==
[2025-05-14 11:17] LABS: Alanine Aminotransferase 24 U/L (0-41); Albumin Level 3.7 g/dL (3.5-5.2); Alkaline Phosphatase 75 U/L (40-130); Anion Gap 16.4 (5-19); Aspartate Amino Transferase 25 U/L (0-40); Blood Urea Nitrogen 30 mg/dL (8-23); Calcium 9.2 mg/dL (8.5-10.5); Carbon Dioxide 25 mmol/L (22-29); Chloride 104 mmol/L (98-107); Free T4 Free Thyroxine 1.30 ng/dL (0.82-1.77); Globulin 3.7 g/dL (1.3-4.6); Glucose 94 mg/dL (65-115); Osmolality Calculated 298 mOsm/kg (285-295); Potassium 4.4 mmol/L (3.5-5.1); Sodium 141 mmol/L (136-145); Thyroid Stimulating Hormone 10.56 uIU/mL (0.27-4.20); Total Protein 7.4 g/dL (6.6-8.7)
== END 2025-05-14 10:13 | disposition home or self-care (01) ==
LOC: LAB 10:13
PROVIDERS: PCP Family Medicine; Visit Provider Internal Medicine
DX: E05.00 Thyrotoxicosis with diffuse goiter without thyrotoxic crisis or storm (principal); E89.0 Postprocedural hypothyroidism; M81.0 Age-related osteoporosis without current pathological fracture; E55.9 Vitamin D deficiency, unspecified
CPT/HCPCS: 36415; 80053; 82306; 84439; 84443

== ENCOUNTER → 2025-05-17 10:46 | Outpatient (BNVA) | payer OTHER, SELFPAY | PROVIDERS: PCP Family Medicine; Visit Provider Thoracic Surgery (Cardiothoracic Vascular Surgery) | DX: Z09 Encounter for follow-up examination after completed treatment for conditions other than malignant neoplasm (principal) | CPT/HCPCS: 99212 ==

== ENCOUNTER → 2025-05-21 10:42 | Outpatient (BNVA) | payer OTHER, SELFPAY | PROVIDERS: PCP Family Medicine; Referring Provider Family Medicine; Visit Provider Specialist | DX: G61.81 Chronic inflammatory demyelinating polyneuritis (principal) | CPT/HCPCS: 99215 ==

== ENCOUNTER 2025-07-24 09:27 | Oncology outpatient (recurring) (ONCR) | payer OTHER, SELFPAY ==
[2025-07-24] MEDS: denosumab-bbdz 60 MG Syringe SUBCUT (09:47)
== END 2025-08-11 23:59 | disposition home or self-care (01) ==
LOC: ONCMED 09:27
PROVIDERS: PCP Family Medicine; Visit Provider Internal Medicine
DX: M81.0 Age-related osteoporosis without current pathological fracture (principal); Z79.899 Other long term (current) drug therapy
CPT/HCPCS: 96372; Q5136